=== PATIENT | female | born 1990 | race Caucasian/White ===

== ENCOUNTER → 2019-01-02 | Outpatient (CLI) | payer OTHER ==
[~2019-01-02] MED LIST: ONDA4 PO; OXYACE5T PO
[2019-01-04 00:10] LABS: CHLAMYDIA TRACHOMATIS, NAA Negative (Negative); NEISSERIA GONORRHOEAE, NAA Negative (Negative)
== END | disposition home or self-care (01) ==
LOC: LAB SHORT 10:41 → LAB 10:41
PROVIDERS: Obstetrics & Gynecology
DX: Z36.89 Encounter for other specified antenatal screening (principal)
CPT/HCPCS: 87491; 87591; G0123

== ENCOUNTER → 2019-06-11 | Outpatient (CLI) | payer OTHER ==
[~2019-06-11] MED LIST changes: +PRENATAL TABLE1 EAC2; +Prozac20 MG
== END | disposition home or self-care (01) ==
LOC: LAB SHORT 16:26 → LAB 16:26
DX: Z34.80 Encounter for supervision of other normal pregnancy, unspecified trimester (principal)
CPT/HCPCS: 87081; 87653

== ENCOUNTER → 2019-06-26 | Outpatient (CLI) | payer OTHER ==
[2019-06-27 11:55] LABS: Candida species (DNA Probe) Negative (NEGATIVE); G. vaginalis (DNA Probe) Positive (NEGATIVE); T. vaginalis (DNA Probe) Negative (NEGATIVE)
== END | disposition home or self-care (01) ==
LOC: LAB 15:08 → LAB SHORT 15:08
PROVIDERS: Advanced Practice Midwife
DX: N89.8 Other specified noninflammatory disorders of vagina (principal)
CPT/HCPCS: 87480; 87510; 87660

== ENCOUNTER 2019-07-02 23:50 | Inpatient (IN) | payer OTHER ==
[~2019-07-02] VITALS: Ht 162.6 cm; Wt 107.2 kg
[~2019-07-02 23:50] MED LIST changes: -PRENATAL TABLE1 EAC2; -Prozac20 MG
[2019-07-03] MEDS ORDERED: PRENATAL TABLE1 EAC2 (00:06)
[2019-07-03] MEDS ORDERED: Prozac20 MG (00:06)
[2019-07-03 01:11] LABS: BASOPHILS ABSOLUTE AUTO 0.02 K/mm3 (0.00-0.23); BASOPHILS PERCENT AUTO 0 % (0-2); EOSINOPHILS ABSOLUTE AUTO 0.03 K/mm3 (0.00-0.68); EOSINOPHILS PERCENT AUTO 0 % (0-6); Hematocrit 34.6 % (33.0-51.0); Hemoglobin 10.8 g/dL (11.5-16.0); IMMATURE GRAN ABSOLUTE AUTO 0.06 K/mm3 (0.00-0.10); IMMATURE GRAN PERCENT AUTO 1 % (0-1); LYMPHOCYTES PERCENT AUTO 24 % (21-46); MONOCYTES ABSOLUTE AUTO 0.93 K/mm3 (0.16-1.47); MONOCYTES PERCENT AUTO 11 % (4-13); Mean Corpuscular HGB 22.5 pg (26.0-34.0); Mean Corpuscular HGB Conc 31.2 g/dL (31.5-36.5); Mean Corpuscular Volume 72 fL (80-100); Mean Platelet Volume 9.7 fL (9.1-12.4); NEUTROPHILS ABSOLUTE AUTO 5.42 K/mm3 (1.96-9.15); NEUTROPHILS PERCENT AUTO 64 % (41-73); Platelet Count 268 K/mm3 (150-400); RDW Coefficient Variation 15.9 % (11.7-14.2); RDW Standard Deviation 40.7 fL (35.1-46.3); Red Blood Cell Count 4.79 M/mm3 (3.80-5.20); White Blood Cell Count 8.46 K/mm3 (4.00-11.30)
[2019-07-03 01:16] LABS: Source, Urine Clean Catch
[2019-07-03 01:20] LABS: Appearance, Urine Cloudy (Clear); Bilirubin, Urine Neg (Neg); Blood, Urine 4+ (Neg); Color, Urine Amber (P-Yellow); Glucose Qualitative, Urine 1+ (Neg); Ketones, Urine 1+ (Neg); Leukocyte Esterase, Urine 3+ (Neg); Nitrite, Urine Neg (Neg); Protein, Urine 2+ (Neg); Specific Gravity, Urine 1.025 (1.003-1.022); Urobilinogen, Urine 1+ (Normal)
[2019-07-03 01:27] LABS: Bacteria Many /hpf; Calcium Oxalate Crystals Many /hpf; Squamous Epithelial Cells Few /hpf (Few)
--- NOTE | 2019-07-03 13:35 | NUR ---
PASS OUT 1320- PT READY TO GET UP TO SHOWER. SITTING AT THE EDGE OF BED WITH SIGIFREDO RN AT BEDSIDE FOR ASSISTANCE. PT SAT UP AND SAID SHE WAS A LITTLE DIZZY. SAT FOR A FEW MINUTES AND SAID SHE WAS READY TO TRY AND SIT IN A CHAIR TO CHANGE BED. SHE TRIED TO GET UP SHE GOT RINGING IN HER EARS AND SHE COMPLETELT PASSED OUT. SIGIFREDO AND MYSELF LAID HER BACK DOWN IN BED AND BROKE AN AMMONIA UNDER HER NOSE. IT TOOK A GOOD MINUTE FOR HER TO COME BACK AROUND. EMERGENCY BUTTON PRESSED AND EXTRA STAFF IN ROOM. O2 VIA FACEMASK ON AND BP ON. ONCE SHE WOKE UP SHE STATED SHE FELT MUCH BETTER. WILL KEEP FLAT AND BP GOING UNTIL STABLE. LOCHIA SCANT AND PADS CHANGED IN BED.
[2019-07-04 06:12] LABS: Hematocrit 30.2 % (33.0-51.0); Hemoglobin 9.5 g/dL (11.5-16.0); Mean Corpuscular HGB 22.8 pg (26.0-34.0); Mean Corpuscular HGB Conc 31.5 g/dL (31.5-36.5); Mean Corpuscular Volume 73 fL (80-100); Mean Platelet Volume 9.6 fL (9.1-12.4); Platelet Count 226 K/mm3 (150-400); RDW Coefficient Variation 16.2 % (11.7-14.2); RDW Standard Deviation 41.3 fL (35.1-46.3); Red Blood Cell Count 4.16 M/mm3 (3.80-5.20)
--- NOTE | 2019-07-04 11:45 | NUR ---
BANDAIDE OVER STERI STRIPS IS C/D/I, NO DRAINAGE NOTED
--- NOTE | 2019-07-04 19:01 | NUR ---
DISCHARGE INSTRUCTIONS REVIEWED WITH PATIENT. VERBALIZES UNDERSTANDING, DENIES ANY FURTHER QUESTIONS. BANDS MATCHED.
== END 2019-07-04 19:00 | disposition home or self-care (01) | DRG 806 ==
LOC: OBS 23:50 → BC 07-03 00:47
PROVIDERS: ADMIT Obstetrics & Gynecology
PROC: 10E0XZZ Delivery of Products of Conception, External Approach (ICD-10-PCS; principal; 2019-07-03)
PROC: 0UQG7ZZ Repair Vagina, Via Natural or Artificial Opening (ICD-10-PCS; 2019-07-03)
PROC: 3E0R3BZ Introduction of Anesthetic Agent into Spinal Canal, Percutaneous Approach (ICD-10-PCS; 2019-07-03)
DX: O34.211 Maternal care for low transverse scar from previous cesarean delivery (principal); O71.4 Obstetric high vaginal laceration alone; Z37.0 Single live birth; Z3A.39 39 weeks gestation of pregnancy; O69.81X0 Labor and delivery complicated by cord around neck, without compression, not applicable or unspecified; Z87.891 Personal history of nicotine dependence
CPT/HCPCS: 36415; 51702; 81001; 85025; 85027; 87086; 87210; A9270; J2001; J2405; J2590; J3010; J7120

== ENCOUNTER → 2019-10-18 | Outpatient (CLI) | payer OTHER ==
[~2019-10-18] MED LIST changes: +PRENATAL TABLE1 EAC2; +Prozac20 MG
[2019-10-21 06:07] LABS: CHLAMYDIA TRACHOMATIS, NAA Negative (Negative); NEISSERIA GONORRHOEAE, NAA Negative (Negative)
== END | disposition home or self-care (01) ==
LOC: LAB 18:02 → LAB SHORT 18:02
PROVIDERS: Advanced Practice Midwife
DX: Z30.09 Encounter for other general counseling and advice on contraception (principal)
CPT/HCPCS: 87491; 87591

== ENCOUNTER → 2019-12-27 | Outpatient (CLI) | payer OTHER ==
[2019-12-28 10:28] LABS: Candida species (DNA Probe) Negative (NEGATIVE); G. vaginalis (DNA Probe) Negative (NEGATIVE); T. vaginalis (DNA Probe) Negative (NEGATIVE)
== END | disposition home or self-care (01) ==
LOC: LAB 10:12 → LAB SHORT 10:12
PROVIDERS: Advanced Practice Midwife
DX: N76.0 Acute vaginitis (principal)
CPT/HCPCS: 87480; 87510; 87660

== ENCOUNTER 2021-06-08 08:36 | Observation (INO) | payer OTHER ==
[~2021-06-08] VITALS: Ht 162.6 cm; Wt 124.0 kg
[~2021-06-08 08:36] MED LIST changes: -ASPI81CH PO; -Acetaminophen325 M1 PO; -BUSP5 PO; -CALCIUM CARBON500 M1 PO; -DILT60 PO; -METO25 PO; -POTCHL20ER PO; -ZOLOFT50 MG PO
[2021-06-08 09:09] LABS: BASOPHILS ABSOLUTE AUTO 0.04 K/mm3 (0.00-0.23); BASOPHILS PERCENT AUTO 0 % (0-2); EOSINOPHILS ABSOLUTE AUTO 0.08 K/mm3 (0.00-0.68); EOSINOPHILS PERCENT AUTO 1 % (0-6); Hematocrit 40.4 % (33.0-51.0); Hemoglobin 13.2 g/dL (11.5-16.0); IMMATURE GRAN ABSOLUTE AUTO 0.04 K/mm3 (0.00-0.10); IMMATURE GRAN PERCENT AUTO 0 % (0-1); LYMPHOCYTES ABSOLUTE AUTO 2.43 K/mm3 (0.84-5.20); LYMPHOCYTES PERCENT AUTO 26 % (21-46); MONOCYTES ABSOLUTE AUTO 0.43 K/mm3 (0.16-1.47); MONOCYTES PERCENT AUTO 5 % (4-13); Mean Corpuscular HGB 25.2 pg (26.0-34.0); Mean Corpuscular HGB Conc 32.7 g/dL (31.5-36.5); Mean Corpuscular Volume 77 fL (80-100); Mean Platelet Volume 10.1 fL (9.1-12.4); NEUTROPHILS ABSOLUTE AUTO 6.34 K/mm3 (1.96-9.15); NEUTROPHILS PERCENT AUTO 68 % (41-73); NRBC ABSOLUTE 0.02 K/mm3 (0.00-0.02); NRBC Auto 0.2 /100 WBC (0.0-0.2); Platelet Count 322 K/mm3 (150-400); RDW Coefficient Variation 15.9 % (11.7-14.2); Red Blood Cell Count 5.24 M/mm3 (3.80-5.20); White Blood Cell Count 9.36 K/mm3 (4.00-11.30)
[2021-06-08 09:24] LABS: Alanine Aminotransfer (ALT/SGP 88 U/L (12-78); Albumin, Blood 3.3 g/dL (3.4-5.0); Alk Phos 53 U/L (50-136); Anion Gap 7 mmol/L (6-16); Aspartate Aminotrans (AST/SGOT 34 U/L (12-37); Bilirubin, Total 0.8 mg/dL (0.1-1.0); Blood Urea Nitrogen 17 mg/dL (8-24); Bun/Creatinine Ratio 18.6 (12.0-20.0); CO2, Blood 23 mmol/L (21-32); Calcium, Blood 8.3 mg/dL (8.5-10.1); Chloride, Blood 109 mmol/L (98-108); Creatinine, Blood 0.92 mg/dL (0.40-1.00); Globulin, Blood 3.2 g/dL (2.2-4.0); Glomerular Filtration Rate >60 (60-); Glucose, Blood 124 mg/dL (70-99); Potassium, Blood 3.7 mmol/L (3.5-5.5); Sodium, Blood 139 mmol/L (136-145); Total Protein, Blood 6.5 g/dL (6.4-8.2); Troponin I <0.015 ng/mL (0.000-0.040)
[2021-06-08 11:26] LABS: SARS-Cov-2 (COVID-19) PCR, MMC NEGATIVE (NEGATIVE)
[2021-06-08] MEDS ORDERED: BUSP5 PO ×2 (11:31)
[2021-06-08] MEDS ORDERED: ZOLOFT50 MG PO ×2 (11:31)
[2021-06-08 17:24] LABS: U Amphetamine Screen Not Detected; U Barbituate Screen Not Detected; U Benzodiazapine Screen Not Detected; U Buprenorphine Screen Not Detected; U Cannabinoids Screen Not Detected; U Cocaine Screen Not Detected; U Methadone Screen Not Detected; U Methamphetamine Screen Not Detected; U Opiates Screen Not Detected; U Oxycodone Screen Not Detected; U Phencyclidine Screen Not Detected; U Propoxyphene Screen Not Detected
--- NOTE | 2021-06-09 06:17 | NUR ---
shift summary pt rested well through the night. alert and oriented, able to make needs known. cooperative with plan of care. sats >90% on room air. tele a fib, rate better controlled in 80's-90's. voiding to bathroom, 1 bm, c/o headache - see emar. vss. call light within reach, bed in lowest positon. will continue to monitor.
[2021-06-09 06:28] LABS: BASOPHILS ABSOLUTE AUTO 0.03 K/mm3 (0.00-0.23); BASOPHILS PERCENT AUTO 1 % (0-2); EOSINOPHILS ABSOLUTE AUTO 0.08 K/mm3 (0.00-0.68); EOSINOPHILS PERCENT AUTO 1 % (0-6); Hematocrit 38.9 % (33.0-51.0); Hemoglobin 12.3 g/dL (11.5-16.0); IMMATURE GRAN ABSOLUTE AUTO 0.03 K/mm3 (0.00-0.10); IMMATURE GRAN PERCENT AUTO 1 % (0-1); LYMPHOCYTES ABSOLUTE AUTO 1.86 K/mm3 (0.84-5.20); LYMPHOCYTES PERCENT AUTO 33 % (21-46); MONOCYTES ABSOLUTE AUTO 0.43 K/mm3 (0.16-1.47); MONOCYTES PERCENT AUTO 8 % (4-13); Mean Corpuscular HGB 24.7 pg (26.0-34.0); Mean Corpuscular HGB Conc 31.6 g/dL (31.5-36.5); Mean Corpuscular Volume 78 fL (80-100); Mean Platelet Volume 10.1 fL (9.1-12.4); NEUTROPHILS ABSOLUTE AUTO 3.23 K/mm3 (1.96-9.15); NEUTROPHILS PERCENT AUTO 57 % (41-73); Platelet Count 238 K/mm3 (150-400); RDW Coefficient Variation 16.3 % (11.7-14.2); RDW Standard Deviation 44.2 fL (35.1-46.3); Red Blood Cell Count 4.98 M/mm3 (3.80-5.20); White Blood Cell Count 5.66 K/mm3 (4.00-11.30)
[2021-06-09 06:51] LABS: Alanine Aminotransfer (ALT/SGP 76 U/L (12-78); Albumin, Blood 3.3 g/dL (3.4-5.0); Alk Phos 47 U/L (50-136); Anion Gap 8 mmol/L (6-16); Aspartate Aminotrans (AST/SGOT 27 U/L (12-37); Bilirubin, Total 0.9 mg/dL (0.1-1.0); Blood Urea Nitrogen 17 mg/dL (8-24); Bun/Creatinine Ratio 18.8 (12.0-20.0); CO2, Blood 25 mmol/L (21-32); Chloride, Blood 105 mmol/L (98-108); Creatinine, Blood 0.91 mg/dL (0.40-1.00); Globulin, Blood 3.2 g/dL (2.2-4.0); Glomerular Filtration Rate >60 (60-); Glucose, Blood 95 mg/dL (70-99); Potassium, Blood 3.4 mmol/L (3.5-5.5); Sodium, Blood 138 mmol/L (136-145); Total Protein, Blood 6.5 g/dL (6.4-8.2)
[2021-06-09] MEDS ORDERED: Acetaminophen325 M1 PO ×2 (13:02)
[2021-06-09] MEDS ORDERED: ASPI81CH PO ×2 (13:04)
[2021-06-09] MEDS ORDERED: CALCIUM CARBON500 M1 PO ×2 (13:05)
[2021-06-09] MEDS ORDERED: POTCHL20ER PO ×2 (13:07)
[2021-06-09] MEDS ORDERED: DILT60 PO ×2 (13:07)
[2021-06-09] MEDS ORDERED: METO25 PO ×2 (13:08)
--- NOTE | 2021-06-09 18:51 | NUR ---
PT DILTIAZEM OFF AT 1045; PT'S RATE MAINTAINING IN 90'S TO LOW 110'S ON PO REGIMEN; ECHO RESULTS IN; TRANSFER ORDERS PLACED; IV OUT AT 1510; TELEMETRY OFF AT 1520; DISCHARGE TEACHING AT 1445; PT DENIES ADDITIONAL CONCERNS AT THIS TIME; PT'S FATHER AT BEDSIDE; PT ASSISTED TO CHANGE INTO STREET CLOTHES; PT TRANSFERRED VIA WHEELCHAIR WITH PERSONAL EFFECTS, ACCOMPANIED BY NURSE TECH, WITH NO MONITORING, IV INFUSION, OR OXYGEN THERAPY; PT DENIES ADDITIONAL CONCERNS AT THIS TIME; PT OFF UNIT AT 1528
== END 2021-06-09 15:27 | disposition home or self-care (01) ==
LOC: ER 08:36 → PCU 15:41
PROVIDERS: Emergency Medicine; Nurse Practitioner Acute Care; ADMIT Internal Medicine
DX: I48.91 Unspecified atrial fibrillation (principal); I50.9 Heart failure, unspecified; E66.01 Morbid (severe) obesity due to excess calories; J45.20 Mild intermittent asthma, uncomplicated; F32.9 Major depressive disorder, single episode, unspecified; F41.9 Anxiety disorder, unspecified; Z68.42 Body mass index [BMI] 45.0-49.9, adult; Z20.822 Contact with and (suspected) exposure to COVID-19
CPT/HCPCS: 36415; 71045; 71260; 80053; 83735; 83880; 84145; 84443; 84484; 84702; 85025; 85651; 86140; 93005; 93010; 93306; A9270; J1940; J2405; Q9967; U0004

== ENCOUNTER → 2021-06-08 | Outpatient (CLI) | payer OTHER ==
[~2021-06-08] MED LIST changes: +ASPI81CH PO; +Acetaminophen325 M1 PO; +BUSP5 PO; +CALCIUM CARBON500 M1 PO; +DILT60 PO; +METO25 PO; +POTCHL20ER PO; +ZOLOFT50 MG PO
[2021-06-08 08:11] LABS: BASOPHILS ABSOLUTE AUTO 0.05 K/mm3 (0.00-0.23); BASOPHILS PERCENT AUTO 1 % (0-2); EOSINOPHILS ABSOLUTE AUTO 0.12 K/mm3 (0.00-0.68); EOSINOPHILS PERCENT AUTO 1 % (0-6); Hematocrit 42.2 % (33.0-51.0); Hemoglobin 13.8 g/dL (11.5-16.0); IMMATURE GRAN ABSOLUTE AUTO 0.04 K/mm3 (0.00-0.10); IMMATURE GRAN PERCENT AUTO 0 % (0-1); LYMPHOCYTES ABSOLUTE AUTO 2.38 K/mm3 (0.84-5.20); LYMPHOCYTES PERCENT AUTO 25 % (21-46); MONOCYTES ABSOLUTE AUTO 0.55 K/mm3 (0.16-1.47); MONOCYTES PERCENT AUTO 6 % (4-13); Mean Corpuscular HGB Conc 32.7 g/dL (31.5-36.5); Mean Corpuscular Volume 77 fL (80-100); Mean Platelet Volume 9.9 fL (9.1-12.4); NEUTROPHILS ABSOLUTE AUTO 6.32 K/mm3 (1.96-9.15); NEUTROPHILS PERCENT AUTO 67 % (41-73); Platelet Count 309 K/mm3 (150-400); RDW Coefficient Variation 16.1 % (11.7-14.2); RDW Standard Deviation 41.7 fL (35.1-46.3); Red Blood Cell Count 5.51 M/mm3 (3.80-5.20); White Blood Cell Count 9.46 K/mm3 (4.00-11.30)
== END | disposition home or self-care (01) ==
LOC: LAB SHORT 08:07 → LAB 08:07
PROVIDERS: Family Medicine
DX: D64.9 Anemia, unspecified (principal); R06.00 Dyspnea, unspecified
CPT/HCPCS: 85025; 85379

== ENCOUNTER 2021-06-25 08:53 | Emergency (ER) | payer OTHER ==
[~2021-06-25] VITALS: Ht 162.6 cm; Wt 120.2 kg
[~2021-06-25 08:53] MED LIST changes: +ASPI81CH PO; +Acetaminophen325 M1 PO; +BUSP5 PO; +CALCIUM CARBON500 M1 PO; +DILT60 PO; +METO25 PO; +POTCHL20ER PO; +ZOLOFT50 MG PO
[2021-06-25 09:28] LABS: BASOPHILS ABSOLUTE AUTO 0.06 K/mm3 (0.00-0.23); BASOPHILS PERCENT AUTO 1 % (0-2); EOSINOPHILS ABSOLUTE AUTO 0.13 K/mm3 (0.00-0.68); EOSINOPHILS PERCENT AUTO 1 % (0-6); Hematocrit 41.2 % (33.0-51.0); Hemoglobin 13.3 g/dL (11.5-16.0); IMMATURE GRAN ABSOLUTE AUTO 0.04 K/mm3 (0.00-0.10); IMMATURE GRAN PERCENT AUTO 0 % (0-1); LYMPHOCYTES ABSOLUTE AUTO 2.39 K/mm3 (0.84-5.20); LYMPHOCYTES PERCENT AUTO 24 % (21-46); MONOCYTES ABSOLUTE AUTO 0.58 K/mm3 (0.16-1.47); MONOCYTES PERCENT AUTO 6 % (4-13); Mean Corpuscular HGB 25.2 pg (26.0-34.0); Mean Corpuscular HGB Conc 32.3 g/dL (31.5-36.5); Mean Corpuscular Volume 78 fL (80-100); Mean Platelet Volume 10.2 fL (9.1-12.4); NEUTROPHILS PERCENT AUTO 67 % (41-73); Platelet Count 317 K/mm3 (150-400); RDW Standard Deviation 46.4 fL (35.1-46.3); Red Blood Cell Count 5.27 M/mm3 (3.80-5.20)
[2021-06-25 09:48] LABS: Alanine Aminotransfer (ALT/SGP 61 U/L (12-78); Albumin, Blood 3.4 g/dL (3.4-5.0); Albumin/Globulin Ratio 1.1 (0.8-1.8); Alk Phos 48 U/L (50-136); Anion Gap 8 mmol/L (6-16); Aspartate Aminotrans (AST/SGOT 22 U/L (12-37); Bilirubin, Total 1.1 mg/dL (0.1-1.0); Blood Urea Nitrogen 16 mg/dL (8-24); CO2, Blood 22 mmol/L (21-32); Calcium, Blood 8.3 mg/dL (8.5-10.1); Chloride, Blood 110 mmol/L (98-108); Creatinine, Blood 1.07 mg/dL (0.40-1.00); Globulin, Blood 3.1 g/dL (2.2-4.0); Glomerular Filtration Rate 59 (60-); Glucose, Blood 99 mg/dL (70-99); Sodium, Blood 140 mmol/L (136-145); Total Protein, Blood 6.5 g/dL (6.4-8.2); Troponin I <0.015 ng/mL (0.000-0.040)
[2021-06-25 10:30] LABS: SARS-Cov-2 (COVID-19) PCR, MMC NEGATIVE (NEGATIVE)
[2021-06-25] MEDS ORDERED: ELIQUIS5 M2 PO (11:52)
[2021-06-25] MEDS ORDERED: CARTIA XT PO (11:52)
== END 2021-06-25 12:10 | disposition home or self-care (01) ==
LOC: ER 08:53
PROVIDERS: Emergency Medicine
DX: I48.91 Unspecified atrial fibrillation (principal); Z20.822 Contact with and (suspected) exposure to COVID-19; Z88.5 Allergy status to narcotic agent; Z88.6 Allergy status to analgesic agent; Z91.048 Other nonmedicinal substance allergy status; Z79.899 Other long term (current) drug therapy; Z79.82 Long term (current) use of aspirin
CPT/HCPCS: 71045; 80053; 83735; 83880; 84484; 84703; 85025; 93005; 93010; 96374; 99285-25; A9270; U0004

== ENCOUNTER → 2021-07-09 | Outpatient (CLI) | payer OTHER ==
[~2021-07-09] MED LIST changes: +CARTIA XT PO; +DILTIAZEM HCL120 M2 PO; +ELIQUIS5 M2 PO; +ELIQUIS5 M3 PO; +FUROSEMIDE20 MG PO; +KLOR-CON 1010 ME3 PO; +ONDA4ODT MM; +SERT100 PO
[2021-07-09 08:36] LABS: BASOPHILS ABSOLUTE AUTO 0.05 K/mm3 (0.00-0.23); BASOPHILS PERCENT AUTO 1 % (0-2); EOSINOPHILS ABSOLUTE AUTO 0.03 K/mm3 (0.00-0.68); EOSINOPHILS PERCENT AUTO 0 % (0-6); Hematocrit 42.5 % (33.0-51.0); Hemoglobin 13.5 g/dL (11.5-16.0); IMMATURE GRAN ABSOLUTE AUTO 0.04 K/mm3 (0.00-0.10); IMMATURE GRAN PERCENT AUTO 0 % (0-1); LYMPHOCYTES ABSOLUTE AUTO 2.28 K/mm3 (0.84-5.20); LYMPHOCYTES PERCENT AUTO 22 % (21-46); MONOCYTES ABSOLUTE AUTO 0.64 K/mm3 (0.16-1.47); MONOCYTES PERCENT AUTO 6 % (4-13); Mean Corpuscular HGB 24.7 pg (26.0-34.0); Mean Corpuscular HGB Conc 31.8 g/dL (31.5-36.5); Mean Corpuscular Volume 78 fL (80-100); Mean Platelet Volume 9.6 fL (9.1-12.4); NEUTROPHILS ABSOLUTE AUTO 7.15 K/mm3 (1.96-9.15); NEUTROPHILS PERCENT AUTO 70 % (41-73); Platelet Count 341 K/mm3 (150-400); RDW Coefficient Variation 16.4 % (11.7-14.2); RDW Standard Deviation 44.8 fL (35.1-46.3); Red Blood Cell Count 5.46 M/mm3 (3.80-5.20); White Blood Cell Count 10.19 K/mm3 (4.00-11.30)
[2021-07-09 08:56] LABS: Alanine Aminotransfer (ALT/SGP 48 U/L (12-78); Albumin, Blood 3.9 g/dL (3.4-5.0); Albumin/Globulin Ratio 1.2 (0.8-1.8); Alk Phos 53 U/L (40-126); Anion Gap 13 mmol/L (6-16); Aspartate Aminotrans (AST/SGOT 17 U/L (12-37); Bilirubin, Total 1.2 mg/dL (0.1-1.0); Blood Urea Nitrogen 15 mg/dL (8-24); Bun/Creatinine Ratio 12.6 (12.0-20.0); CO2, Blood 24 mmol/L (21-32); Calcium, Blood 8.4 mg/dL (8.5-10.1); Chloride, Blood 103 mmol/L (98-108); Creatinine, Blood 1.19 mg/dL (0.40-1.00); Globulin, Blood 3.3 g/dL (2.2-4.0); Glomerular Filtration Rate 53 (60-); Glucose, Blood 106 mg/dL (70-99); Potassium, Blood 4.1 mmol/L (3.5-5.5); Sodium, Blood 140 mmol/L (136-145); Total Protein, Blood 7.2 g/dL (6.4-8.2); Troponin I <0.017 ng/mL (0.000-0.040)
[2021-07-09 11:06] LABS: Bilirubin, Direct 0.2 mg/dL (0.0-0.3); Bilirubin, Indirect 0.9 mg/dL (0.1-0.7); Bilirubin, Total 1.1 mg/dL (0.1-1.0)
== END | disposition home or self-care (01) ==
LOC: LAB SHORT 08:33 → LAB 08:33
PROVIDERS: Physician Assistant
DX: K92.0 Hematemesis (principal); E80.6 Other disorders of bilirubin metabolism; R11.2 Nausea with vomiting, unspecified
CPT/HCPCS: 80053; 82247; 82248; 84484; 84702; 85025

== ENCOUNTER → 2021-07-13 | Outpatient (CLI) | payer OTHER ==
[2021-07-13 13:20] LABS: Stool Occult Bld Immuno 1 Negative (NEGATIVE)
== END | disposition home or self-care (01) ==
LOC: LAB 08:08 → LAB SHORT 08:08
PROVIDERS: Student in an Organized Health Care Education/Training Program
DX: K92.1 Melena (principal)
CPT/HCPCS: G0328

== ENCOUNTER 2021-07-15 13:17 | Emergency (ER) | payer OTHER ==
[~2021-07-15] VITALS: Ht 162.6 cm; Wt 119.8 kg
[~2021-07-15 13:17] MED LIST changes: -DILTIAZEM HCL120 M2 PO; -ELIQUIS5 M3 PO; -FUROSEMIDE20 MG PO; -KLOR-CON 1010 ME3 PO; -ONDA4ODT MM; -SERT100 PO
[2021-07-15] MEDS ORDERED: SERT100 PO (14:42)
[2021-07-15] MEDS ORDERED: ELIQUIS5 M3 PO (14:42)
[2021-07-15] MEDS ORDERED: KLOR-CON 1010 ME3 PO (14:44)
[2021-07-15] MEDS ORDERED: FUROSEMIDE20 MG PO (14:44)
[2021-07-15] MEDS ORDERED: DILTIAZEM HCL120 M2 PO (14:46)
[2021-07-15] MEDS ORDERED: ONDA4ODT MM (17:07)
== END 2021-07-15 17:35 | disposition home or self-care (01) ==
LOC: ER 13:17
DX: I48.91 Unspecified atrial fibrillation (principal); J45.909 Unspecified asthma, uncomplicated; Z88.5 Allergy status to narcotic agent; Z88.6 Allergy status to analgesic agent; Z91.048 Other nonmedicinal substance allergy status; Z79.899 Other long term (current) drug therapy; Z79.82 Long term (current) use of aspirin; Z79.01 Long term (current) use of anticoagulants; Z87.891 Personal history of nicotine dependence
CPT/HCPCS: 92960; 93005; 93010; 96374-59; 96375-59; 99152; 99285-25; J2704; J3010; J7030

== ENCOUNTER → 2021-07-15 | Outpatient (CLI) | payer OTHER ==
[2021-07-15 13:10] LABS: Alanine Aminotransfer (ALT/SGP 50 U/L (12-78); Albumin/Globulin Ratio 1.1 (0.8-1.8); Alk Phos 53 U/L (40-126); Anion Gap 10 mmol/L (6-16); Aspartate Aminotrans (AST/SGOT 19 U/L (12-37); Bilirubin, Total 1.1 mg/dL (0.1-1.0); Blood Urea Nitrogen 19 mg/dL (8-24); Bun/Creatinine Ratio 17.3 (12.0-20.0); CO2, Blood 29 mmol/L (21-32); Calcium, Blood 8.9 mg/dL (8.5-10.1); Chloride, Blood 102 mmol/L (98-108); Globulin, Blood 3.5 g/dL (2.2-4.0); Glomerular Filtration Rate 58 (60-); Glucose, Blood 86 mg/dL (70-99); Magnesium, Blood 2.1 mg/dL (1.6-2.4); Potassium, Blood 3.8 mmol/L (3.5-5.5); Sodium, Blood 141 mmol/L (136-145); Total Protein, Blood 7.5 g/dL (6.4-8.2)
[2021-07-15 13:11] LABS: Troponin I <0.017 ng/mL (0.000-0.040)
== END | disposition home or self-care (01) ==
LOC: LAB SHORT 12:53 → LAB 12:53
PROVIDERS: Chiropractor
DX: R00.2 Palpitations (principal)
CPT/HCPCS: 80053; 83735; 84484

== ENCOUNTER 2021-08-27 16:06 | Inpatient (IN) | payer OTHER ==
[~2021-08-27] VITALS: Ht 162.6 cm; Wt 117.0 kg
[~2021-08-27 16:06] MED LIST changes: -BUSP5 PO; +ELIQUIS5 M3 PO; +ONDA4ODT MM
[2021-08-27 16:27] LABS: BASOPHILS ABSOLUTE AUTO 0.07 K/mm3 (0.00-0.23); BASOPHILS PERCENT AUTO 1 % (0-2); EOSINOPHILS ABSOLUTE AUTO 0.18 K/mm3 (0.00-0.68); EOSINOPHILS PERCENT AUTO 2 % (0-6); Hematocrit 45.5 % (33.0-51.0); IMMATURE GRAN ABSOLUTE AUTO 0.06 K/mm3 (0.00-0.10); IMMATURE GRAN PERCENT AUTO 1 % (0-1); LYMPHOCYTES ABSOLUTE AUTO 3.87 K/mm3 (0.84-5.20); LYMPHOCYTES PERCENT AUTO 32 % (21-46); MONOCYTES PERCENT AUTO 8 % (4-13); Mean Corpuscular HGB 22.9 pg (26.0-34.0); Mean Corpuscular HGB Conc 30.8 g/dL (31.5-36.5); Mean Corpuscular Volume 75 fL (80-100); Mean Platelet Volume 9.3 fL (9.1-12.4); NEUTROPHILS ABSOLUTE AUTO 6.78 K/mm3 (1.96-9.15); NEUTROPHILS PERCENT AUTO 57 % (41-73); Platelet Count 379 K/mm3 (150-400); RDW Coefficient Variation 17.5 % (11.7-14.2); RDW Standard Deviation 42.2 fL (35.1-46.3); Red Blood Cell Count 6.11 M/mm3 (3.80-5.20); White Blood Cell Count 11.96 K/mm3 (4.00-11.30)
[2021-08-27 17:08] LABS: Albumin/Globulin Ratio 1.1 (0.8-1.8); Bilirubin, Total 0.8 mg/dL (0.1-1.0); Calcium, Blood 9.2 mg/dL (8.5-10.1); Creatinine, Blood 1.14 mg/dL (0.40-1.00); Globulin, Blood 3.7 g/dL (2.2-4.0); Total Protein, Blood 7.7 g/dL (6.4-8.2)
[2021-08-27 19:04] LABS: SARS-Cov-2 (COVID-19) PCR, MMC NEGATIVE (NEGATIVE)
[2021-08-27] MEDS ORDERED: DILTIAZEM 24HR120 M4 PO (19:15)
[2021-08-27] MEDS ORDERED: KLOR-CON 1010 ME3 PO (19:17)
[2021-08-27] MEDS ORDERED: FUROSEMIDE20 MG PO (19:17)
[2021-08-27] MEDS ORDERED: SERT100 PO (19:20)
[2021-08-27] MEDS ORDERED: Tambocor100 MG PO (19:22)
[2021-08-27] MEDS ORDERED: LANOXIN250 MCG PO (19:22)
[2021-08-27] MEDS ORDERED: XARELTO20 M1 PO (19:23)
[2021-08-27 19:29] LABS: Source, Urine Clean Catch
[2021-08-27 19:44] LABS: Appearance, Urine Hazy (Clear); Bilirubin, Urine Neg (Neg); Blood, Urine Neg (Neg); Color, Urine Yellow (P-Yellow); Glucose Qualitative, Urine Neg (Neg); Ketones, Urine Neg (Neg); Leukocyte Esterase, Urine Neg (Neg); Nitrite, Urine Neg (Neg); Protein, Urine 2+ (Neg); Specific Gravity, Urine 1.015 (1.003-1.022); Urobilinogen, Urine NORM (Normal)
[2021-08-27] MEDS ORDERED: BUSP5 PO (19:48)
[2021-08-27 19:55] LABS: U Amphetamine Screen Not Detected; U Barbituate Screen Not Detected; U Benzodiazapine Screen Not Detected; U Buprenorphine Screen Not Detected; U Cannabinoids Screen Not Detected; U Cocaine Screen Not Detected; U Methadone Screen Not Detected; U Methamphetamine Screen Not Detected; U Opiates Screen DETECTED; U Oxycodone Screen Not Detected; U Phencyclidine Screen Not Detected; U Propoxyphene Screen Not Detected
[2021-08-27 20:03] LABS: Bacteria Mod /hpf; Squamous Epithelial Cells Many /hpf (Few)
[2021-08-27 20:06] LABS: Red Blood Cells, Urine Not Seen /hpf (0-2); White Blood Cells, Urine Rare /hpf (0-5)
[2021-08-28 00:33] LABS: CPK Creatine Kinase 31 U/L (26-193); Troponin I <0.015 ng/mL (0.000-0.040)
[2021-08-28 00:52] LABS: Free Thyroxine 1.26 ng/dL (0.70-1.60)
[2021-08-28 01:29] LABS: BASOPHILS ABSOLUTE AUTO 0.06 K/mm3 (0.00-0.23); BASOPHILS PERCENT AUTO 1 % (0-2); EOSINOPHILS ABSOLUTE AUTO 0.12 K/mm3 (0.00-0.68); EOSINOPHILS PERCENT AUTO 1 % (0-6); Hematocrit 41.8 % (33.0-51.0); IMMATURE GRAN ABSOLUTE AUTO 0.04 K/mm3 (0.00-0.10); IMMATURE GRAN PERCENT AUTO 0 % (0-1); LYMPHOCYTES ABSOLUTE AUTO 2.56 K/mm3 (0.84-5.20); LYMPHOCYTES PERCENT AUTO 26 % (21-46); MONOCYTES PERCENT AUTO 6 % (4-13); Mean Corpuscular HGB 22.7 pg (26.0-34.0); Mean Corpuscular HGB Conc 31.1 g/dL (31.5-36.5); Mean Corpuscular Volume 73 fL (80-100); Mean Platelet Volume 9.2 fL (9.1-12.4); NEUTROPHILS ABSOLUTE AUTO 6.35 K/mm3 (1.96-9.15); NEUTROPHILS PERCENT AUTO 65 % (41-73); Platelet Count 282 K/mm3 (150-400); RDW Coefficient Variation 16.4 % (11.7-14.2); RDW Standard Deviation 41.2 fL (35.1-46.3); Red Blood Cell Count 5.73 M/mm3 (3.80-5.20); White Blood Cell Count 9.73 K/mm3 (4.00-11.30)
[2021-08-28 01:44] LABS: International Normalized Ratio 1.1; Prothrombin Time Results 11.5 Sec (9.7-11.5)
[2021-08-28 01:47] LABS: Albumin, Blood 3.5 g/dL (3.4-5.0); Bun/Creatinine Ratio 11.4 (12.0-20.0); Calcium, Blood 8.6 mg/dL (8.5-10.1); Creatinine, Blood 1.4 mg/dL (0.40-1.00); Globulin, Blood 3.6 g/dL (2.2-4.0); Potassium, Blood 3.5 mmol/L (3.5-5.5); Total Protein, Blood 7.1 g/dL (6.4-8.2)
[2021-08-28 09:06] LABS: CPK Creatine Kinase 33 U/L (26-193); Troponin I <0.015 ng/mL (0.000-0.040)
--- NOTE | 2021-08-28 18:42 | NUR ---
SHIFT SUMMARY: PT CONTINUES A&Ox4, USES CALL LIGHT APPROPRIATELY. PT MAINTAINS O2 SATS >93% ON RA, AFLUTTER W/RATE IN 120s CONSISTENT ON MONITOR, DR DURBIN IS AWARE. PT TO AND FROM HANDLE ROUNDER OPERATOR TODAY FOR ANGIOGRAM, ARTERIES ARE CLEAR, NO INTERVENTION PERFORMED. PT W/RT RADIAL SITE, TR BAND HAS BEEN REMOVED AND CLEAR DRESSING AND ARM BOARD IN PLACE, SITE WNL. AMIODARONE INFUSION CONTINUES PER DR DURBIN. PLAN IS POSSIBLE CARDIOVERSION IN AM. PT IS AWARE OF PLAN. CHEST TIGHTNESS CONTINUES T/OUT DAY, PT MEDICATED PER EMAR. PT ABLE TO USE BSC W/SBA. WILL CONTINUE TO MONITOR AND TREAT ACCORDINGLY UNTIL CHANGE OF SHIFT.
[2021-08-29 00:26] LABS: BASOPHILS ABSOLUTE AUTO 0.05 K/mm3 (0.00-0.23); BASOPHILS PERCENT AUTO 1 % (0-2); EOSINOPHILS ABSOLUTE AUTO 0.13 K/mm3 (0.00-0.68); EOSINOPHILS PERCENT AUTO 2 % (0-6); Hematocrit 40.9 % (33.0-51.0); Hemoglobin 12.7 g/dL (11.5-16.0); IMMATURE GRAN ABSOLUTE AUTO 0.04 K/mm3 (0.00-0.10); IMMATURE GRAN PERCENT AUTO 1 % (0-1); LYMPHOCYTES ABSOLUTE AUTO 2.23 K/mm3 (0.84-5.20); LYMPHOCYTES PERCENT AUTO 27 % (21-46); MONOCYTES ABSOLUTE AUTO 0.66 K/mm3 (0.16-1.47); MONOCYTES PERCENT AUTO 8 % (4-13); Mean Corpuscular HGB 22.8 pg (26.0-34.0); Mean Corpuscular HGB Conc 31.1 g/dL (31.5-36.5); Mean Corpuscular Volume 73 fL (80-100); Mean Platelet Volume 9.2 fL (9.1-12.4); NEUTROPHILS ABSOLUTE AUTO 5.27 K/mm3 (1.96-9.15); NEUTROPHILS PERCENT AUTO 63 % (41-73); Platelet Count 261 K/mm3 (150-400); RDW Coefficient Variation 16.2 % (11.7-14.2); RDW Standard Deviation 42.5 fL (35.1-46.3); Red Blood Cell Count 5.57 M/mm3 (3.80-5.20); White Blood Cell Count 8.38 K/mm3 (4.00-11.30)
[2021-08-29 00:44] LABS: Alanine Aminotransfer (ALT/SGP 28 U/L (12-78); Albumin, Blood 3.4 g/dL (3.4-5.0); Alk Phos 54 U/L (50-136); Anion Gap 9 mmol/L (6-16); Aspartate Aminotrans (AST/SGOT 20 U/L (12-37); Bilirubin, Total 0.8 mg/dL (0.1-1.0); Blood Urea Nitrogen 19 mg/dL (8-24); Bun/Creatinine Ratio 18.3 (12.0-20.0); CO2, Blood 24 mmol/L (21-32); Calcium, Blood 8.2 mg/dL (8.5-10.1); Chloride, Blood 104 mmol/L (98-108); Creatinine, Blood 1.04 mg/dL (0.40-1.00); Globulin, Blood 3.4 g/dL (2.2-4.0); Glomerular Filtration Rate >60 (60-); Glucose, Blood 97 mg/dL (70-99); Potassium, Blood 3.6 mmol/L (3.5-5.5); Sodium, Blood 137 mmol/L (136-145); Total Protein, Blood 6.8 g/dL (6.4-8.2)
--- NOTE | 2021-08-29 17:02 | NUR ---
SHIFT SUMMARY PT A/O X4 AND COOPERATIVE OF CARE. PT REMAINED IN A-FLUTTER WITH A RATE IN THE 130'S FOR MOST OF SHIFT, MEDS GIVEN PER EMAR. PT REPORTED OCCASSIONAL CHEST PRESSURE AND SOB TOWARD BEGINNING OF SHIFT, SYMPTOMS HAVE LESSENED TOWARDS END OF SHIFT. PT WAS UP TO BEDSIDE COMMODE WITH MINIMAL ASSISTANCE, TOLERATED WELL. AMIODARONE GTT DC'D, PO MEDS NOW ON BOARD. PT WILL BE NPO AFTER MIDNIGHT FOR POSSIBLE CARDIOVERSION TOMMORROW. O2 SATS > 98% T/O SHIFT.
--- NOTE | 2021-08-29 18:06 | NUR ---
UPDATE AT 1800, THIS RN CAME TO PT ROOM TO GIVEN 1800 MEDS. PT STATES " I FELL LIGHT HEADED AND HAVE SOME CHEST PRESSURE. IT FEELS LIKE MY TODDLER IS SITTING ON MY CHEST." PT ALSO REPORTS FEELING SOB, O2 SATS 100 ON RA. PT HR A-FLUTTER RANGING FROM 105-134. PT BP 110/79 WITH A MAP OF 88. PT RECIEVED DIGOXIN AND XARELTO PER EMAR. WILL CONTINUE TO MONITOR.
--- NOTE | 2021-08-29 22:47 | NUR ---
ASSUMED CARE OF PT AT 1900. PATIENT SITTING HIGH FOWLERS IN BED ON HER PHONE. AFIB AVG 115-125 PER TELE. REPORTS OF 2/10 CHEST PRESSURE THAT SHE'S HAD PREVIOUSLY. RADIAL SITE WNL WITH PULSES PALPABLE BILATERALLY. CALL LIGHT WITHIN REACH.
--- NOTE | 2021-08-30 02:38 | NUR ---
A/OX4. REPORTS INTERMITTENT CHEST PRESSURE (SHE STATES NOT PAIN) OF A 2/10 THAT IS EXACTLY LIKE WHAT SHE'S BEEN EXPERIENCING PREVIOUSLY. REPORTS EXERTIONAL SOB, RR RANGES FROM 14-28. LS CLEAR UPPER AND DIM LOWER. AFIB AT 120. RADIAL SITE C/D/I WITH EQUAL PALPABLE PULSES BILATERALLY. PATIENT WAS GIVEN LAST LOADING DOSE OF DIGOXIN AND ORAL AMIO AND BROUGHT PULSE DOWN TO 50'S BRIEFLY BUT THEN MAINTAINED AROUND 70-80. NPO AT MIDNIGHT FOR POTENTIAL CARDIOVERSION IN AM. WILL REPORT TO LALITO NYE.
[2021-08-30 03:49] LABS: BASOPHILS ABSOLUTE AUTO 0.04 K/mm3 (0.00-0.23); BASOPHILS PERCENT AUTO 1 % (0-2); EOSINOPHILS PERCENT AUTO 1 % (0-6); Hematocrit 41.9 % (33.0-51.0); Hemoglobin 12.9 g/dL (11.5-16.0); IMMATURE GRAN ABSOLUTE AUTO 0.05 K/mm3 (0.00-0.10); IMMATURE GRAN PERCENT AUTO 1 % (0-1); LYMPHOCYTES ABSOLUTE AUTO 2.06 K/mm3 (0.84-5.20); LYMPHOCYTES PERCENT AUTO 25 % (21-46); MONOCYTES ABSOLUTE AUTO 0.65 K/mm3 (0.16-1.47); MONOCYTES PERCENT AUTO 8 % (4-13); Mean Corpuscular HGB 22.5 pg (26.0-34.0); Mean Corpuscular HGB Conc 30.8 g/dL (31.5-36.5); Mean Corpuscular Volume 73 fL (80-100); Mean Platelet Volume 9.3 fL (9.1-12.4); NEUTROPHILS ABSOLUTE AUTO 5.23 K/mm3 (1.96-9.15); NEUTROPHILS PERCENT AUTO 64 % (41-73); Platelet Count 270 K/mm3 (150-400); RDW Standard Deviation 41.3 fL (35.1-46.3); Red Blood Cell Count 5.73 M/mm3 (3.80-5.20); White Blood Cell Count 8.13 K/mm3 (4.00-11.30)
[2021-08-30 04:07] LABS: Alanine Aminotransfer (ALT/SGP 26 U/L (12-78); Albumin, Blood 3.3 g/dL (3.4-5.0); Albumin/Globulin Ratio 0.9 (0.8-1.8); Alk Phos 54 U/L (50-136); Anion Gap 8 mmol/L (6-16); Aspartate Aminotrans (AST/SGOT 21 U/L (12-37); Bilirubin, Total 0.9 mg/dL (0.1-1.0); Blood Urea Nitrogen 15 mg/dL (8-24); Bun/Creatinine Ratio 16.8 (12.0-20.0); CO2, Blood 24 mmol/L (21-32); Calcium, Blood 8.6 mg/dL (8.5-10.1); Chloride, Blood 106 mmol/L (98-108); Creatinine, Blood 0.89 mg/dL (0.40-1.00); Globulin, Blood 3.5 g/dL (2.2-4.0); Glomerular Filtration Rate >60 (60-); Glucose, Blood 91 mg/dL (70-99); Potassium, Blood 3.8 mmol/L (3.5-5.5); Sodium, Blood 138 mmol/L (136-145); Total Protein, Blood 6.8 g/dL (6.4-8.2)
--- NOTE | 2021-08-30 17:47 | NUR ---
SHIFT SUMMARY PT A/O X4 AND COOPERATIVE OF CARE. PT WAS SR RANGING FROM 65-80 T/O SHIFT. NO REPORTS OF CHEST PAIN/PRESSURE T/O SHIFT. NO REPORT OF SOB T/O SHIFT. PT O2 SATS >97% T/O SHIFT. PT HAS BEEN SLIGHTLY ANXIOUS AT TIMES ABOUT CURRENT MEDICATIONS THE PT IS RECEIVING. PT TOLERATING DIET WITH NO REPORT OF NAUSEA.
[2021-08-31 03:50] LABS: BASOPHILS ABSOLUTE AUTO 0.04 K/mm3 (0.00-0.23); BASOPHILS PERCENT AUTO 1 % (0-2); EOSINOPHILS ABSOLUTE AUTO 0.12 K/mm3 (0.00-0.68); EOSINOPHILS PERCENT AUTO 1 % (0-6); Hematocrit 40.2 % (33.0-51.0); Hemoglobin 12.4 g/dL (11.5-16.0); IMMATURE GRAN ABSOLUTE AUTO 0.04 K/mm3 (0.00-0.10); IMMATURE GRAN PERCENT AUTO 1 % (0-1); LYMPHOCYTES ABSOLUTE AUTO 2.15 K/mm3 (0.84-5.20); LYMPHOCYTES PERCENT AUTO 26 % (21-46); MONOCYTES PERCENT AUTO 8 % (4-13); Mean Corpuscular HGB 22.9 pg (26.0-34.0); Mean Corpuscular HGB Conc 30.8 g/dL (31.5-36.5); Mean Corpuscular Volume 74 fL (80-100); Mean Platelet Volume 9.4 fL (9.1-12.4); NEUTROPHILS ABSOLUTE AUTO 5.28 K/mm3 (1.96-9.15); NEUTROPHILS PERCENT AUTO 63 % (41-73); Platelet Count 242 K/mm3 (150-400); RDW Coefficient Variation 16.9 % (11.7-14.2); RDW Standard Deviation 42.5 fL (35.1-46.3); Red Blood Cell Count 5.42 M/mm3 (3.80-5.20); White Blood Cell Count 8.33 K/mm3 (4.00-11.30)
[2021-08-31 04:14] LABS: Alanine Aminotransfer (ALT/SGP 28 U/L (12-78); Albumin, Blood 3.3 g/dL (3.4-5.0); Albumin/Globulin Ratio 0.9 (0.8-1.8); Alk Phos 51 U/L (50-136); Anion Gap 7 mmol/L (6-16); Aspartate Aminotrans (AST/SGOT 20 U/L (12-37); Bilirubin, Total 0.7 mg/dL (0.1-1.0); Blood Urea Nitrogen 17 mg/dL (8-24); Bun/Creatinine Ratio 18.1 (12.0-20.0); CO2, Blood 23 mmol/L (21-32); Calcium, Blood 8.7 mg/dL (8.5-10.1); Chloride, Blood 108 mmol/L (98-108); Creatinine, Blood 0.94 mg/dL (0.40-1.00); Globulin, Blood 3.5 g/dL (2.2-4.0); Glomerular Filtration Rate >60 (60-); Glucose, Blood 95 mg/dL (70-99); Potassium, Blood 3.9 mmol/L (3.5-5.5); Sodium, Blood 138 mmol/L (136-145); Total Protein, Blood 6.8 g/dL (6.4-8.2)
--- NOTE | 2021-08-31 06:11 | NUR ---
SHIFT SUMMARY NO ACUTE CHANGES THIS SHIFT. PT A&OX4. SP02>92% ON RA. TELEMTRY READS NSR, HR 60'S. PT DENIES PAIN. PT UP TO BATHROOM INDEPENDENTLY. PT SLEPT MOST OF NIGHT. EKG DONE THIS AM PER ORDERS. REPOSITIONED SELF IN BED. CALL LIGHT IN REACH. WILL GIVE REPORT TO ONCOMING NURSE.
[2021-08-31] MEDS ORDERED: IRBE75 PO (14:21)
[2021-08-31] MEDS ORDERED: LANOXIN125 MCG PO (14:21)
[2021-08-31] MEDS ORDERED: AMIODARONE HCL400 M2 PO (14:21)
[2021-08-31] MEDS ORDERED: METO50ER PO (14:22)
[2021-08-31] MEDS ORDERED: METR500 PO (14:43)
--- NOTE | 2021-08-31 15:10 | NUR ---
DISCHARGE: PT ALERT AND ORIENTED X4. ON ROOM AIR. NEURO WNL. TELE SHOWING SINUS WITH HR 60-70'S. DENIES CHEST PAIN/PRESSURE. BP STABLE. ABLE TO TAKE MEDS WHOLE WITH WATER. PPP. BOWEL TONES PRESENT. INDPEND TO BATHROOM. DENIES ABDOMINAL PAIN/NAUSEA. RIGHT RADIAL SITE WNL. NO SIGNS OF HEMATOMA OR BRUISING. DENIES PAIN. SITE EDUCATION PROVIDED. PATIENT TOLERATING DIET WELL. CALL LIGHT REMAINED IN REACH AND BED IN LOW LOCKED POSITION. DISCHARGE INSTRUCTIONS REVIEWED AND QUESTIONS ANSWERED. PATIENT FATHER IN TO NUMERICAL CONTROL MACHINE TOOL OPERATOR PATIENT. LEFT UNIT VIA WHEELCHAIR WITH ALL PERSONAL BELONGINGS. IV TAKEN OUT WNL.
== END 2021-08-31 15:05 | disposition home or self-care (01) | DRG 286 ==
LOC: ER 16:06 → PCU 16:07 → ER 20:01 → PCU 20:01
PROVIDERS: Family Medicine; Physician Assistant; Student in an Organized Health Care Education/Training Program; ADMIT Internal Medicine
PROC: B2111ZZ Fluoroscopy of Multiple Coronary Arteries using Low Osmolar Contrast (ICD-10-PCS; principal; 2021-08-28)
DX: I48.91 Unspecified atrial fibrillation (principal); I50.21 Acute systolic (congestive) heart failure; I47.2 Ventricular tachycardia; E66.01 Morbid (severe) obesity due to excess calories; N76.0 Acute vaginitis; Z88.6 Allergy status to analgesic agent; Z88.8 Allergy status to other drugs, medicaments and biological substances; Z98.890 Other specified postprocedural states; F41.9 Anxiety disorder, unspecified; F32.9 Major depressive disorder, single episode, unspecified; Z79.899 Other long term (current) drug therapy; Z88.5 Allergy status to narcotic agent; Z20.822 Contact with and (suspected) exposure to COVID-19
CPT/HCPCS: 36415; 71275; 76937; 80053; 81001; 81025; 82550; 83735; 83880; 84439; 84443; 84484; 85025; 85610; 85730; 87086; 90686; 93005; 93010; 93308; 93321; 93454; 96365; 96366; 96367; 96372; 96375; 96376; 99152; 99153; 99285-25; A9270; C1769; C1887; C1894; C8929; G0008; G0378; J0282; J1160; J1644; J1940; J2250; J2270; J2405; J3010; J3475; J7030; J7060; Q9957; Q9967; U0004

== ENCOUNTER 2021-10-16 09:46 | Emergency (ER) | payer OTHER ==
[~2021-10-16] VITALS: Ht 162.6 cm; Wt 120.2 kg
[~2021-10-16 09:46] MED LIST changes: +AMIODARONE HCL400 M2 PO; +BUSP5 PO; +DILTIAZEM 24HR120 M4 PO; +FUROSEMIDE20 MG PO; +IRBE75 PO; +KLOR-CON 1010 ME3 PO; +LANOXIN125 MCG PO; +LANOXIN250 MCG PO; +METO50ER PO; +METR500 PO; +SERT100 PO; +Tambocor100 MG PO; +XARELTO20 M1 PO
[2021-10-16 10:43] LABS: BASOPHILS ABSOLUTE AUTO 0.07 K/mm3 (0.00-0.23); BASOPHILS PERCENT AUTO 1 % (0-2); EOSINOPHILS ABSOLUTE AUTO 0.04 K/mm3 (0.00-0.68); EOSINOPHILS PERCENT AUTO 1 % (0-6); Hematocrit 40.8 % (33.0-51.0); Hemoglobin 12.4 g/dL (11.5-16.0); IMMATURE GRAN PERCENT AUTO 2 % (0-1); LYMPHOCYTES ABSOLUTE AUTO 1.66 K/mm3 (0.84-5.20); LYMPHOCYTES PERCENT AUTO 25 % (21-46); MONOCYTES ABSOLUTE AUTO 0.51 K/mm3 (0.16-1.47); MONOCYTES PERCENT AUTO 8 % (4-13); Mean Corpuscular HGB 23.4 pg (26.0-34.0); Mean Corpuscular HGB Conc 30.4 g/dL (31.5-36.5); Mean Corpuscular Volume 77 fL (80-100); Mean Platelet Volume 9.8 fL (9.1-12.4); NEUTROPHILS ABSOLUTE AUTO 4.27 K/mm3 (1.96-9.15); NEUTROPHILS PERCENT AUTO 64 % (41-73); Platelet Count 210 K/mm3 (150-400); RDW Coefficient Variation 19.9 % (11.7-14.2); RDW Standard Deviation 54.4 fL (35.1-46.3); White Blood Cell Count 6.65 K/mm3 (4.00-11.30)
[2021-10-16 11:10] LABS: Alanine Aminotransfer (ALT/SGP 55 U/L (12-78); Albumin, Blood 3.7 g/dL (3.4-5.0); Albumin/Globulin Ratio 1.1 (0.8-1.8); Alk Phos 60 U/L (50-136); Anion Gap 8 mmol/L (6-16); Aspartate Aminotrans (AST/SGOT 27 U/L (12-37); Bilirubin, Total 0.6 mg/dL (0.1-1.0); Blood Urea Nitrogen 14 mg/dL (8-24); Bun/Creatinine Ratio 17.7 (12.0-20.0); CO2, Blood 25 mmol/L (21-32); Calcium, Blood 9.4 mg/dL (8.5-10.1); Chloride, Blood 107 mmol/L (98-108); Creatinine, Blood 0.79 mg/dL (0.40-1.00); Globulin, Blood 3.4 g/dL (2.2-4.0); Glomerular Filtration Rate >60 (60-); Glucose, Blood 92 mg/dL (70-99); Potassium, Blood 4.3 mmol/L (3.5-5.5); Sodium, Blood 140 mmol/L (136-145); Total Protein, Blood 7.1 g/dL (6.4-8.2); Troponin I <0.015 ng/mL (0.000-0.040)
== END 2021-10-16 12:21 | disposition home or self-care (01) ==
LOC: ER 09:46
PROVIDERS: Emergency Medicine
DX: R07.9 Chest pain, unspecified (principal); I48.91 Unspecified atrial fibrillation; J45.909 Unspecified asthma, uncomplicated; Z79.899 Other long term (current) drug therapy; Z79.01 Long term (current) use of anticoagulants
CPT/HCPCS: 36415; 71046; 80053; 83690; 84484; 85025; 93005; 93010; 99284-25

== ENCOUNTER → 2021-10-21 | Outpatient (CLI) | payer OTHER ==
[2021-10-21 11:11] LABS: BASOPHILS ABSOLUTE AUTO 0.05 K/mm3 (0.00-0.23); BASOPHILS PERCENT AUTO 1 % (0-2); EOSINOPHILS ABSOLUTE AUTO 0.04 K/mm3 (0.00-0.68); EOSINOPHILS PERCENT AUTO 1 % (0-6); Hematocrit 37.9 % (33.0-51.0); Hemoglobin 12.3 g/dL (11.5-16.0); IMMATURE GRAN ABSOLUTE AUTO 0.15 K/mm3 (0.00-0.10); IMMATURE GRAN PERCENT AUTO 2 % (0-1); LYMPHOCYTES ABSOLUTE AUTO 1.45 K/mm3 (0.84-5.20); LYMPHOCYTES PERCENT AUTO 17 % (21-46); MONOCYTES ABSOLUTE AUTO 0.67 K/mm3 (0.16-1.47); MONOCYTES PERCENT AUTO 8 % (4-13); Mean Corpuscular HGB Conc 32.5 g/dL (31.5-36.5); Mean Corpuscular Volume 74 fL (80-100); Mean Platelet Volume 9.8 fL (9.1-12.4); NEUTROPHILS ABSOLUTE AUTO 6.02 K/mm3 (1.96-9.15); NEUTROPHILS PERCENT AUTO 72 % (41-73); Platelet Count 282 K/mm3 (150-400); RDW Coefficient Variation 20.4 % (11.7-14.2); RDW Standard Deviation 52.2 fL (35.1-46.3); Red Blood Cell Count 5.13 M/mm3 (3.80-5.20); White Blood Cell Count 8.38 K/mm3 (4.00-11.30)
[2021-10-21 11:33] LABS: Alanine Aminotransfer (ALT/SGP 62 U/L (12-78); Albumin, Blood 3.9 g/dL (3.4-5.0); Albumin/Globulin Ratio 1.1 (0.8-1.8); Alk Phos 68 U/L (40-126); Anion Gap 8 mmol/L (6-16); Aspartate Aminotrans (AST/SGOT 26 U/L (12-37); Bilirubin, Total 0.5 mg/dL (0.1-1.0); Blood Urea Nitrogen 15 mg/dL (8-24); Bun/Creatinine Ratio 17.4 (12.0-20.0); CO2, Blood 27 mmol/L (21-32); Calcium, Blood 9.4 mg/dL (8.5-10.1); Chloride, Blood 100 mmol/L (98-108); Creatinine, Blood 0.86 mg/dL (0.40-1.00); Globulin, Blood 3.5 g/dL (2.2-4.0); Glomerular Filtration Rate >60 (60-); Glucose, Blood 101 mg/dL (70-99); Potassium, Blood 4.7 mmol/L (3.5-5.5); Sodium, Blood 135 mmol/L (136-145); Total Protein, Blood 7.4 g/dL (6.4-8.2)
== END | disposition home or self-care (01) ==
LOC: LAB SHORT 11:07 → LAB 11:07
PROVIDERS: Family Medicine
DX: R10.11 Right upper quadrant pain (principal)
CPT/HCPCS: 80053; 85025

== ENCOUNTER → 2021-12-22 | Outpatient (CLI) | payer OTHER ==
[2021-12-22 11:42] LABS: BASOPHILS ABSOLUTE AUTO 0.06 K/mm3 (0.00-0.23); BASOPHILS PERCENT AUTO 1 % (0-2); EOSINOPHILS ABSOLUTE AUTO 0.11 K/mm3 (0.00-0.68); EOSINOPHILS PERCENT AUTO 1 % (0-6); Hematocrit 43.8 % (33.0-51.0); Hemoglobin 13.8 g/dL (11.5-16.0); IMMATURE GRAN ABSOLUTE AUTO 0.07 K/mm3 (0.00-0.10); IMMATURE GRAN PERCENT AUTO 1 % (0-1); LYMPHOCYTES ABSOLUTE AUTO 2.41 K/mm3 (0.84-5.20); LYMPHOCYTES PERCENT AUTO 25 % (21-46); MONOCYTES ABSOLUTE AUTO 0.67 K/mm3 (0.16-1.47); MONOCYTES PERCENT AUTO 7 % (4-13); Mean Corpuscular HGB 24.2 pg (26.0-34.0); Mean Corpuscular HGB Conc 31.5 g/dL (31.5-36.5); Mean Corpuscular Volume 77 fL (80-100); Mean Platelet Volume 9.3 fL (9.1-12.4); NEUTROPHILS ABSOLUTE AUTO 6.33 K/mm3 (1.96-9.15); NEUTROPHILS PERCENT AUTO 66 % (41-73); Platelet Count 272 K/mm3 (150-400); RDW Coefficient Variation 15.1 % (11.7-14.2); RDW Standard Deviation 41.1 fL (35.1-46.3); White Blood Cell Count 9.65 K/mm3 (4.00-11.30)
[2021-12-22 12:05] LABS: Alanine Aminotransfer (ALT/SGP 35 U/L (12-78); Albumin, Blood 3.9 g/dL (3.4-5.0); Albumin/Globulin Ratio 1.1 (0.8-1.8); Alk Phos 61 U/L (40-126); Anion Gap 10 mmol/L (6-16); Aspartate Aminotrans (AST/SGOT 16 U/L (12-37); Bilirubin, Total 0.4 mg/dL (0.1-1.0); Blood Urea Nitrogen 17 mg/dL (8-24); Bun/Creatinine Ratio 19.1 (12.0-20.0); CO2, Blood 27 mmol/L (21-32); Calcium, Blood 8.9 mg/dL (8.5-10.1); Chloride, Blood 102 mmol/L (98-108); Creatinine, Blood 0.89 mg/dL (0.40-1.00); Globulin, Blood 3.5 g/dL (2.2-4.0); Glomerular Filtration Rate >60 (60-); Glucose, Blood 88 mg/dL (70-99); Potassium, Blood 4.6 mmol/L (3.5-5.5); Sodium, Blood 139 mmol/L (136-145); Thyroid Stimulating Hormone 1.367 uIU/mL (0.360-4.800); Total Protein, Blood 7.4 g/dL (6.4-8.2)
== END | disposition home or self-care (01) ==
LOC: LAB SHORT 11:35 → LAB 11:35
PROVIDERS: Physician Assistant
DX: R53.83 Other fatigue (principal)
CPT/HCPCS: 80053; 84443; 85025

== ENCOUNTER → 2023-01-10 | Outpatient (CLI) | payer BC, OTHER ==
[2023-01-10 13:06] LABS: BASOPHILS ABSOLUTE AUTO 0.05 K/mm3 (0.00-0.23); BASOPHILS PERCENT AUTO 1 % (0-2); EOSINOPHILS ABSOLUTE AUTO 0.14 K/mm3 (0.00-0.68); EOSINOPHILS PERCENT AUTO 2 % (0-6); Hemoglobin 13.6 g/dL (11.5-16.0); IMMATURE GRAN ABSOLUTE AUTO 0.08 K/mm3 (0.00-0.10); IMMATURE GRAN PERCENT AUTO 1 % (0-1); LYMPHOCYTES ABSOLUTE AUTO 2.19 K/mm3 (0.84-5.20); LYMPHOCYTES PERCENT AUTO 29 % (21-46); MONOCYTES ABSOLUTE AUTO 0.67 K/mm3 (0.16-1.47); MONOCYTES PERCENT AUTO 9 % (4-13); Mean Corpuscular HGB 24.3 pg (26.0-34.0); Mean Corpuscular HGB Conc 32.4 g/dL (31.5-36.5); Mean Corpuscular Volume 75 fL (80-100); Mean Platelet Volume 9.9 fL (9.1-12.4); NEUTROPHILS ABSOLUTE AUTO 4.55 K/mm3 (1.96-9.15); NEUTROPHILS PERCENT AUTO 59 % (41-73); Platelet Count 229 K/mm3 (150-400); RDW Coefficient Variation 15.6 % (11.7-14.2); RDW Standard Deviation 40.5 fL (35.1-46.3); White Blood Cell Count 7.68 K/mm3 (4.00-11.30)
[2023-01-10 13:25] LABS: Albumin, Blood 3.6 g/dL (3.4-5.0); Albumin/Globulin Ratio 0.9 (0.8-1.8); Bilirubin, Total 0.4 mg/dL (0.1-1.0); Bun/Creatinine Ratio 21.3 (12.0-20.0); Calcium, Blood 9.2 mg/dL (8.5-10.1); Creatinine, Blood 0.8 mg/dL (0.40-1.00); Globulin, Blood 3.8 g/dL (2.2-4.0); Thyroid Stimulating Hormone 0.943 uIU/mL (0.360-4.800); Total Protein, Blood 7.4 g/dL (6.4-8.2)
== END ==
LOC: LAB SHORT 13:01
PROVIDERS: Physician Assistant
DX: R53.83 Other fatigue (principal)
CPT/HCPCS: 80053; 84443; 85025

== ENCOUNTER → 2023-01-26 | Outpatient (CLI) | payer BC, OTHER | LOC: LAB 06:41 → LAB SHORT 06:41 | PROVIDERS: Physician Assistant Medical | DX: R19.5 Other fecal abnormalities (principal) | CPT/HCPCS: 82653; 83993 ==

== ENCOUNTER 2023-12-23 06:37 | Day surgery (SDC) | payer BC ==
[~2023-12-23] VITALS: Ht 162.6 cm; Wt 136.3 kg
[~2023-12-23 06:37] MED LIST changes: +DOCU100 PO; +ESCI20 PO; +FAMO20 PO; +FERSU300 PO; +IRON PO; +LANS15EC PO; +Lactated Ringer's 1,000 ML IV SCH; +ZYRTEC10 M2 PO
[2023-12-23 07:40] VITALS: BP 166/88
--- NOTE | 2023-12-23 07:59 | NUR ---
Ambulatory in Day Surgery WITH STEADY GAIT, ABLE TO USE RESTROOM INDEPENDENTLY. History, Chart, Medications and Allergies reviewed before start of procedure. Lungs clear T/O to Auscultation. Patient confirms NPO status and agrees with scheduled surgery. Pre-Op teaching done. Pt verbalizes understanding. Patient States Post-Procedure ride home has been arranged WITH SPOUSE BARBARASPER.
[2023-12-23] MEDS ORDERED: propofoL 20 ML IV ONE (08:09)
[2023-12-23] MEDS ORDERED: Midazolam HCl 1MG / ML 2ML Vial ONE (08:10)
[2023-12-23] MEDS ORDERED: FentaNYL Citrate 50 MCG/ML 2 ML Injection ONE (08:10)
--- NOTE | 2023-12-23 08:17 | NUR ---
12/23/23 0817 Chika Cazares HISTORY, CHART, MEDICATIONS AND ALLERGIES REVIEWED BEFORE START OF PROCEDURE. PATIENT CONFIRMS NPO STATUS AND AGREES WITH SCHEDULED PROCEDURE. 3-LEAD EKG REVIEWED WITH PHYSICIAN PRIOR TO START OF PROCEDURE. MONITOR INTACT WITH CONTINUOUS PULSE OXIMETRY,CAPNOGRAPHY, 3-LEAD EKG, INTERMITTENT BP. SUPPLEMENTAL O2 TO BE TITRATED THROUGHOUT PROCEDURE TO MAINTAIN O2 SATURATION ABOVE 90%. MAC DONE SEE ANESTHESIA RECORDS
[2023-12-23 08:52] VITALS: BP 153/89
--- NOTE | 2023-12-23 08:53 | NUR ---
DR GAMBINO AND DR BARRIOS AT BEDSIDE. PLAN TO TRANSFER PATIENT TO ED POST EGD PER DR TIMMONS FOR CARDIAC CONCERNS.
--- NOTE | 2023-12-23 09:14 | NUR ---
0859- TRANSFERED TO ED ROOM 8 VIA GURNEY AND TRANSFER MONITOR WITH CONTINUOUS 3-LEAD EKG AND PULSE OX, WITH INTERMITTENT BP. REPORT GIVEN TO WANDA LANCASTER RN. DR GAMBINO ACCOMPANIED PATIENT TO ED AND GAVE REPORT TO ED PROVIDER.
[2023-12-24] MEDS ORDERED: ELIQUIS5 M2 PO (13:54)
[2023-12-24] MEDS ORDERED: ABILIFY MYCITE2 M2 PO (13:54)
== END 2023-12-23 22:55 | disposition home or self-care (01) ==
LOC: ORSCMMR 06:37 → ORD 08:15 → ORSCMMR 08:15 → ORD 03-16 08:00
PROVIDERS: Internal Medicine Gastroenterology
PROC: 0DB98ZX Excision of Duodenum, Via Natural or Artificial Opening Endoscopic, Diagnostic (ICD-10-PCS; principal; 2023-12-23 08:15)
PROC: 0DB68ZX Excision of Stomach, Via Natural or Artificial Opening Endoscopic, Diagnostic (ICD-10-PCS; principal; 2023-12-23 08:15)
DX: R10.13 Epigastric pain (principal); K21.9 Gastro-esophageal reflux disease without esophagitis; R11.0 Nausea; I48.91 Unspecified atrial fibrillation; I50.9 Heart failure, unspecified; R19.4 Change in bowel habit; Z80.0 Family history of malignant neoplasm of digestive organs; G47.33 Obstructive sleep apnea (adult) (pediatric); I10 Essential (primary) hypertension; E66.9 Obesity, unspecified; Z68.43 Body mass index [BMI] 50.0-59.9, adult; Z79.899 Other long term (current) drug therapy; F17.210 Nicotine dependence, cigarettes, uncomplicated
CPT/HCPCS: 88305; 88342; J2250; J2704; J3010; J7120

== ENCOUNTER 2023-12-23 09:06 | Observation (INO) | payer BC ==
[~2023-12-23] VITALS: Ht 162.6 cm; Wt 134.3 kg
[~2023-12-23 09:06] MED LIST changes: -Lactated Ringer's 1,000 ML IV SCH
[2023-12-23] MEDS ORDERED: Metoprolol Tartrate 1 MG/ML 5 ML VIAL IV PRN (10:00)
[2023-12-23] MEDS ORDERED: NS 1,000 ML IV SCH (10:00)
[2023-12-23 10:30] LABS: BASOPHILS ABSOLUTE AUTO 0.03 K/mm3 (0.00-0.23); BASOPHILS PERCENT AUTO 0 % (0-2); EOSINOPHILS ABSOLUTE AUTO 0.08 K/mm3 (0.00-0.68); EOSINOPHILS PERCENT AUTO 1 % (0-6); Hematocrit 42.8 % (33.0-51.0); Hemoglobin 14.4 g/dL (11.5-16.0); IMMATURE GRAN ABSOLUTE AUTO 0.06 K/mm3 (0.00-0.10); IMMATURE GRAN PERCENT AUTO 1 % (0-1); LYMPHOCYTES ABSOLUTE AUTO 1.91 K/mm3 (0.84-5.20); LYMPHOCYTES PERCENT AUTO 26 % (21-46); MONOCYTES ABSOLUTE AUTO 0.39 K/mm3 (0.16-1.47); MONOCYTES PERCENT AUTO 5 % (4-13); Mean Corpuscular HGB 27.2 pg (26.0-34.0); Mean Corpuscular HGB Conc 33.6 g/dL (31.5-36.5); Mean Corpuscular Volume 81 fL (80-100); Mean Platelet Volume 9.4 fL (9.1-12.4); NEUTROPHILS PERCENT AUTO 67 % (41-73); Platelet Count 242 K/mm3 (150-400); RDW Coefficient Variation 14.6 % (11.7-14.2); RDW Standard Deviation 41.5 fL (35.1-46.3); Red Blood Cell Count 5.29 M/mm3 (3.80-5.20); White Blood Cell Count 7.37 K/mm3 (4.00-11.30)
[2023-12-23 10:59] LABS: Bun/Creatinine Ratio 17.9 (12.0-20.0); Calcium, Blood 8.6 mg/dL (8.5-10.1); Creatinine, Blood 0.73 mg/dL (0.40-1.00); Magnesium, Blood 2.2 mg/dL (1.6-2.4); Potassium, Blood 4.1 mmol/L (3.5-5.5)
[2023-12-23] MEDS ORDERED: FLU VACC QS2023-24(6MOS UP)/PF 60 MCG/0.5 ML SYRINGE IM SCH (15:50)
[2023-12-23] MEDS ORDERED: Ondansetron 4 MG SoluTab MM PRN (16:05)
[2023-12-23] MEDS ORDERED: Pantoprazole Sodium 40 MG Tab PO SCH (16:30)
--- NOTE | 2023-12-23 16:36 | NUR ---
REPORT RECIEVED FROM ER NURSE AT 8761.
[2023-12-23 17:01] VITALS: BP 114/93
--- NOTE | 2023-12-23 17:19 | NUR ---
TRANSFER UPDATE PT ARRIVED TO PCU AT 1650 VIA GURNEY AND ON RA. AMIO GTT RUNNING PER ORDERS. PT AMBULATED TO BATHROOM AT TIME OF ARRIVALM, TOLERATED WELL. PT A/OX4. PT AFIB IN THE 90-110'S, ASYMPTOMATIC AT THIS TIME. PT REPORTS NO PALPITATIONS AT THIS TIME. OTHER VSS AT THIS TIME. PT ABLE TO PROVIDE HEALTH HISTORY. PT ORIENTED TO ROOM AND CALL LIGHT. FAMILY AT BEDSIDE.
[2023-12-23] MEDS ORDERED: Apixaban 5 MG Tab ONE (18:31)
[2023-12-23 20:09] VITALS: BP 129/93
[2023-12-23] MEDS ORDERED: Metoprolol Succinate 50 MG TABCR PO SCH (21:00)
[2023-12-23] MEDS ORDERED: Apixaban 5 MG Tab PO SCH (21:00)
[2023-12-23 23:20] VITALS: BP 126/82
[2023-12-24 02:07] LABS: Magnesium, Blood 2.3 mg/dL (1.6-2.4)
[2023-12-24 02:08] LABS: Albumin, Blood 3.3 g/dL (3.4-5.0); Anion Gap 4 mmol/L (6-16); Blood Urea Nitrogen 17 mg/dL (8-24); CO2, Blood 25 mmol/L (21-32); Calcium, Blood 8.5 mg/dL (8.5-10.1); Chloride, Blood 109 mmol/L (98-108); Glomerular Filtration Rate 86 (60-); Glucose, Blood 104 mg/dL (70-99); Phosphorus, Blood 3.5 mg/dL (2.5-4.9); Potassium, Blood 3.8 mmol/L (3.5-5.5); Sodium, Blood 138 mmol/L (136-145)
[2023-12-24 02:09] LABS: BASOPHILS ABSOLUTE AUTO 0.04 K/mm3 (0.00-0.23); BASOPHILS PERCENT AUTO 1 % (0-2); EOSINOPHILS ABSOLUTE AUTO 0.08 K/mm3 (0.00-0.68); EOSINOPHILS PERCENT AUTO 1 % (0-6); Hematocrit 42.5 % (33.0-51.0); Hemoglobin 14.5 g/dL (11.5-16.0); IMMATURE GRAN ABSOLUTE AUTO 0.07 K/mm3 (0.00-0.10); IMMATURE GRAN PERCENT AUTO 1 % (0-1); LYMPHOCYTES PERCENT AUTO 30 % (21-46); MONOCYTES ABSOLUTE AUTO 0.55 K/mm3 (0.16-1.47); MONOCYTES PERCENT AUTO 7 % (4-13); Mean Corpuscular HGB 27.4 pg (26.0-34.0); Mean Corpuscular HGB Conc 34.1 g/dL (31.5-36.5); Mean Corpuscular Volume 80 fL (80-100); Mean Platelet Volume 9.8 fL (9.1-12.4); NEUTROPHILS PERCENT AUTO 61 % (41-73); Platelet Count 225 K/mm3 (150-400); RDW Coefficient Variation 14.7 % (11.7-14.2); RDW Standard Deviation 42.5 fL (35.1-46.3); Red Blood Cell Count 5.29 M/mm3 (3.80-5.20); White Blood Cell Count 8.14 K/mm3 (4.00-11.30)
[2023-12-24] MEDS ORDERED: Potassium Chloride 10 Meq Tablet SA PO ONE (02:20)
--- NOTE | 2023-12-24 02:22 | NUR ---
CARDIAC EVENT PT HAD 12 BEAT RUN OF VTACH AT 2320. PT REPORTED SOME SOB BUT OTHER POLANCO NONSYMPTOMATIC. HOSPITALIST NOTIFIED AND REVIEWED CHART. SAID TO CHECK LABS IN AM AND MONITOR. AT 0130 PT HAD ANOTHER 11 BEAT RUN OF VTACH WHILE GOING TO THE BATHROOM AND FELT VERY SOB AND REPORTS SHARP PAIN UNDER HER LEFT BREAST IN HER CHEST WITH DEEP BREATHS. LABS DRAWN EARLY. HOSPITALIST NOTIFED AND SAID TO ADD TROPONIN AND SUGGESTED ASKING DAYSHIFT DOCTOR IF PT NEEDS REPEAT ECHO. PT CURRENTLY RESTING IN BED AND REPORTS CP AND SOB GETTING BETTER WITH REST.
[2023-12-24 04:05] VITALS: BP 139/89
--- NOTE | 2023-12-24 05:07 | NUR ---
SHIFT SUMMARY ASSUMED CARE OF PT AT 1900. PT IS A/OX4. PT WAS IN AFIB T/O THE NOC. PT HAD FREQUENT RUNS OF VTACH RANGING FROM 5-12 BEATS. LUNG SOUNDS CLEAR. PT C/O SOB AND CP AFTER WALKING TO THE BATHROOM. TROPONINS NEGATIVE. PT FELT BETTER AFTER RESTING. PT DID NOT SLEEP AT ALL DURING THE NOC.
[2023-12-24 07:26] VITALS: BP 141/103
[2023-12-24] MEDS ORDERED: ARIPiprazole 2 MG Tablet PO SCH (09:00)
[2023-12-24] MEDS ORDERED: Citalopram Hydrobromide 20 MG Tab PO SCH (09:00)
[2023-12-24] MEDS ORDERED: Famotidine 20 MG Tab PO SCH (09:00)
[2023-12-24] MEDS ORDERED: Amiodarone HCl 200 MG Tab PO SCH (09:00)
[2023-12-24] MEDS ORDERED: Loratadine 10 MG Tab PO SCH (09:00)
--- NOTE | 2023-12-24 09:56 | NUR ---
UPDATE: PT CONVERTED TO SINUS RHYTHM @09. VSS. AWARE, ORDERS TO CONTINUE AMIO DRIP.
[2023-12-24 11:16] VITALS: BP 140/94
[2023-12-24] MEDS ORDERED: ELIQUIS5 M2 PO (13:54)
[2023-12-24] MEDS ORDERED: ABILIFY MYCITE2 M2 PO (13:54)
--- NOTE | 2023-12-24 14:39 | NUR ---
DISCHARGE: PT D/C PCU 5 @1440 VIA WHEELCHAIR. DISCHARGE INSTRUCTIONS AND EDUCATION PROVIDED TO PT AND SPOUSE. ALL BELONGINGS WITH PT.
== END 2023-12-24 14:49 | disposition home or self-care (01) ==
LOC: ER 09:06 → PCU 09:07
PROVIDERS: Student in an Organized Health Care Education/Training Program; ADMIT Family Medicine
DX: I48.0 Paroxysmal atrial fibrillation (principal); I48.92 Unspecified atrial flutter; I11.0 Hypertensive heart disease with heart failure; I50.20 Unspecified systolic (congestive) heart failure; I42.8 Other cardiomyopathies; F32.9 Major depressive disorder, single episode, unspecified; E66.2 Morbid (severe) obesity with alveolar hypoventilation; Z68.43 Body mass index [BMI] 50.0-59.9, adult; Z88.8 Allergy status to other drugs, medicaments and biological substances; Z87.891 Personal history of nicotine dependence
CPT/HCPCS: 36415; 80048; 80069; 83735; 84484; 85025; 93005; 93010; 96361; 96365; 96366; 96375; 99291-25; A9270; G0378; J0282; J7030

== ENCOUNTER → 2024-08-30 | Outpatient (CLI) | payer OTHER ==
[~2024-08-30] MED LIST changes: +ABILIFY MYCITE2 M2 PO
[2024-08-30 13:16] LABS: BASOPHILS ABSOLUTE AUTO 0.05 K/mm3 (0.00-0.23); BASOPHILS PERCENT AUTO 1 % (0-2); EOSINOPHILS ABSOLUTE AUTO 0.12 K/mm3 (0.00-0.68); EOSINOPHILS PERCENT AUTO 1 % (0-6); Hematocrit 41.1 % (33.0-51.0); Hemoglobin 13.1 g/dL (11.5-16.0); IMMATURE GRAN PERCENT AUTO 1 % (0-1); LYMPHOCYTES ABSOLUTE AUTO 2.42 K/mm3 (0.84-5.20); LYMPHOCYTES PERCENT AUTO 25 % (21-46); MONOCYTES ABSOLUTE AUTO 0.76 K/mm3 (0.16-1.47); MONOCYTES PERCENT AUTO 8 % (4-13); Mean Corpuscular HGB Conc 31.9 g/dL (31.5-36.5); Mean Corpuscular Volume 82 fL (80-100); NEUTROPHILS ABSOLUTE AUTO 6.09 K/mm3 (1.96-9.15); NEUTROPHILS PERCENT AUTO 64 % (41-73); Platelet Count 255 K/mm3 (150-400); RDW Coefficient Variation 14.6 % (11.7-14.2); RDW Standard Deviation 42.5 fL (35.1-46.3); Red Blood Cell Count 5.03 M/mm3 (3.80-5.20); White Blood Cell Count 9.54 K/mm3 (4.00-11.30)
[2024-08-30 13:38] LABS: Albumin, Blood 3.4 g/dL (3.4-5.0); Bilirubin, Total 0.5 mg/dL (0.1-1.0); Bun/Creatinine Ratio 16.3 (12.0-20.0); Calcium, Blood 8.8 mg/dL (8.5-10.1); Creatinine, Blood 0.98 mg/dL (0.40-1.00); Globulin, Blood 3.5 g/dL (2.2-4.0); Potassium, Blood 4.1 mmol/L (3.5-5.5); Thyroid Stimulating Hormone 0.506 uIU/mL (0.360-4.800); Total Protein, Blood 6.9 g/dL (6.4-8.2)
== END | disposition home or self-care (01) ==
LOC: LAB SHORT 13:12 → LAB 13:12
PROVIDERS: Physician Assistant Surgical
DX: R07.9 Chest pain, unspecified (principal)
CPT/HCPCS: 80053; 84443; 84484; 85025; 85379

== ENCOUNTER 2025-03-05 16:36 | Inpatient (IN) | payer OTHER ==
[~2025-03-05] VITALS: Ht 162.6 cm; Wt 136.1 kg
[2025-03-05] MEDS ORDERED: RIVAROXABAN2.5 MG PO (17:26)
[2025-03-05] MEDS ORDERED: NS 1,000 ML IV ONE (17:36)
[2025-03-05 17:50] LABS: BASOPHILS ABSOLUTE AUTO 0.04 K/mm3 (0.00-0.23); BASOPHILS PERCENT AUTO 0 % (0-2); EOSINOPHILS ABSOLUTE AUTO 0.07 K/mm3 (0.00-0.68); EOSINOPHILS PERCENT AUTO 1 % (0-6); Hematocrit 45.8 % (33.0-51.0); Hemoglobin 14.8 g/dL (11.5-16.0); IMMATURE GRAN ABSOLUTE AUTO 0.07 K/mm3 (0.00-0.10); IMMATURE GRAN PERCENT AUTO 1 % (0-1); LYMPHOCYTES ABSOLUTE AUTO 1.98 K/mm3 (0.84-5.20); LYMPHOCYTES PERCENT AUTO 21 % (21-46); MONOCYTES ABSOLUTE AUTO 0.59 K/mm3 (0.16-1.47); MONOCYTES PERCENT AUTO 6 % (4-13); Mean Corpuscular HGB 25.6 pg (26.0-34.0); Mean Corpuscular HGB Conc 32.3 g/dL (31.5-36.5); Mean Corpuscular Volume 79 fL (80-100); Mean Platelet Volume 10.1 fL (9.1-12.4); NEUTROPHILS ABSOLUTE AUTO 6.67 K/mm3 (1.96-9.15); NEUTROPHILS PERCENT AUTO 71 % (41-73); Platelet Count 256 K/mm3 (150-400); RDW Coefficient Variation 15.2 % (11.7-14.2); RDW Standard Deviation 42.9 fL (35.1-46.3); Red Blood Cell Count 5.79 M/mm3 (3.80-5.20); White Blood Cell Count 9.42 K/mm3 (4.00-11.30)
[2025-03-05] MEDS ORDERED: Metoprolol Tartrate 1 MG/ML 5 ML VIAL IV ONE (18:00)
[2025-03-05 18:07] LABS: Albumin, Blood 3.8 g/dL (3.4-5.0); Bilirubin, Total 0.7 mg/dL (0.1-1.0); Bun/Creatinine Ratio 15.7 (12.0-20.0); Calcium, Blood 9.4 mg/dL (8.5-10.1); Creatinine, Blood 0.96 mg/dL (0.40-1.00); Globulin, Blood 3.7 g/dL (2.2-4.0); Total Protein, Blood 7.5 g/dL (6.4-8.2)
[2025-03-05] MEDS ORDERED: Amiodarone HCl 50 MG / ML 3 ML Amp IV ONE (19:45)
[2025-03-05 20:00] LABS: Magnesium, Blood 1.7 mg/dL (1.6-2.4); Phosphorus, Blood 3.4 mg/dL (2.5-4.9)
[2025-03-05] MEDS ORDERED: Rivaroxaban 10 MG Tab PO SCH (20:00)
[2025-03-05] MEDS ORDERED: NS 1,000 ML IV SCH ×2 (20:00→20:35)
[2025-03-05 22:21] VITALS: BP 106/77
[2025-03-05 22:54] VITALS: BP 95/71
--- NOTE | 2025-03-05 23:32 | NUR ---
PT ARRIVAL PT ARRIVED VIA CART FROM ED AT 2201 ,PT TRANSFERRED SELF TO BED WITH STANDBY ASSIST.PT ON AMIODARONE DRIP INFUSING AT 33.3ML/HR,STARTED IN ED AT 2024.PT HAS PACER PADS ON.IN AFIB WITH IRREGULAR RATE OF 107-150'S.PT DENIES CHEST PAIN/PRESSURE.STATES THAT SHE HAS CHEST DISCOMFORT WHICH HAS IMPROVED SINCE SHE CAME TO THE HOSPITAL.DENIES NAUSEA,DENIES SOB.ROOM ORIENTATION COMPLETED.PT VERBALIZES UNDERSTANDING.CALL LIGHT AND PT'S ITEMS WITHIN REACH.WILL CONTINUE TO MONITOR.
[2025-03-05 23:34] VITALS: BP 102/65
[2025-03-05 23:45] VITALS: BP 99/54
[2025-03-06] VITALS (26 sets, daily range): BP systolic 89–142; BP diastolic 53–108
[2025-03-06 04:58] LABS: Bun/Creatinine Ratio 12.6 (12.0-20.0); Calcium, Blood 8.1 mg/dL (8.5-10.1); Creatinine, Blood 0.96 mg/dL (0.40-1.00); Magnesium, Blood 1.9 mg/dL (1.6-2.4); Potassium, Blood 3.9 mmol/L (3.5-5.5)
--- NOTE | 2025-03-06 06:51 | NUR ---
PT HAS BEEN AWAKE MOST OF THE NIGHT, ON MAINTANANCE AMIODARONE DRIP AT 16.7ML/HR.AFIB HR 96-160.HR 160BPM WITH ACTIVITY.PT REPORTS THAT THE CHEST DISCOMFORT HAS RESOLVED.DENIES CHEST PAIN,DENIES SOB.PT MAINTAINED OXYGEN SATURATION >93% ON RA.PT STATES THAT FAMILY WILL BRING HOME CPAP TODAY.PT ASKING FOR FOOD.PT INFORMED THAT WILL DISCUSS WITH PROVIDER THIS MORNING.CALL LIGHT AND PT'S ITEMS WITHIN REACH.DENIES NEEDS AT THIS TIME,WILL GIVE REPORT TO INCOMING NURSE FOR CONTINUITY OF CARE.
[2025-03-06] MEDS ORDERED: Omeprazole 20 MG CapCR PO SCH (16:30)
--- NOTE | 2025-03-06 18:14 | NUR ---
PT SUMMARY; PT WAS ORIGINALLY PLANNED FOR CARDIOVERISON SUPPOSEDLY AT 2PM TODAY, PT CONVERTED BACK TO SR AT 1156 SUSTAINED IN THE 70-80'S. PT REPORTED FEELING MUCH BETTER/RELIEF ON HER CHEST. SBP 120'S, SATS BAOVE 95% ON RA. PT HAS BEEN AMBULATING IN THE ROOM AND AROUND THE UNIT ASSISTED AND PT REMAINED ON SR. TO START PO AMIO IN THE MORNING. FAMILY AT THE BEDSIDE T/O SHIFT AWARE OF THE PLAN OF CARE. NO ACUTE CHANGED FOR THE SHIFT WILL REPORT TO ONCOMING SHIFT
[2025-03-06] MEDS ORDERED: Acetaminophen 325 MG TABLET PO PRN (18:30)
[2025-03-06] MEDS ORDERED: Metoprolol Succinate 50 MG TABCR PO SCH (21:00)
[2025-03-07 04:15] LABS: BASOPHILS ABSOLUTE AUTO 0.02 K/mm3 (0.00-0.23); BASOPHILS PERCENT AUTO 0 % (0-2); EOSINOPHILS ABSOLUTE AUTO 0.08 K/mm3 (0.00-0.68); EOSINOPHILS PERCENT AUTO 1 % (0-6); Hematocrit 40.1 % (33.0-51.0); Hemoglobin 12.6 g/dL (11.5-16.0); IMMATURE GRAN ABSOLUTE AUTO 0.05 K/mm3 (0.00-0.10); IMMATURE GRAN PERCENT AUTO 1 % (0-1); LYMPHOCYTES ABSOLUTE AUTO 1.89 K/mm3 (0.84-5.20); LYMPHOCYTES PERCENT AUTO 27 % (21-46); MONOCYTES ABSOLUTE AUTO 0.58 K/mm3 (0.16-1.47); MONOCYTES PERCENT AUTO 8 % (4-13); Mean Corpuscular HGB 25.1 pg (26.0-34.0); Mean Corpuscular HGB Conc 31.4 g/dL (31.5-36.5); Mean Corpuscular Volume 80 fL (80-100); NEUTROPHILS ABSOLUTE AUTO 4.35 K/mm3 (1.96-9.15); NEUTROPHILS PERCENT AUTO 63 % (41-73); Platelet Count 208 K/mm3 (150-400); RDW Coefficient Variation 15.3 % (11.7-14.2); Red Blood Cell Count 5.01 M/mm3 (3.80-5.20); White Blood Cell Count 6.97 K/mm3 (4.00-11.30)
[2025-03-07 04:39] LABS: Bun/Creatinine Ratio 18.2 (12.0-20.0); Calcium, Blood 8.5 mg/dL (8.5-10.1); Creatinine, Blood 0.93 mg/dL (0.40-1.00); Magnesium, Blood 2.1 mg/dL (1.6-2.4); Potassium, Blood 3.8 mmol/L (3.5-5.5)
[2025-03-07 04:48] VITALS: BP 121/85
--- NOTE | 2025-03-07 05:28 | NUR ---
A/OX4, VERBALIZES NEEDS, USES CALL LIGHT APPROPRIATELY. PTS IN ROOM WITH HER. PT DENIES PAIN. SINUS RHYTHM, HR 60 S-70 S, PULSES PALPABLE, DENIES CHEST PAIN/PRESSURE. PT REMAINS ON RA WHILE AWAKE SATS ABOVE 90%. BROUGHT IN HOME CPAP, RT CLEARED USE OF HOME CPAP, PT POLITELY DECLINED CONTINUOUS PULSE OXIMETER WHILE USING CPAP RECOMMENDED BY RT. TOLERATED CPAP WELL, ALL NIGHT WHILE SLEEPING. PT AMBULATES TO BATHROOM INDEPENDENTLY. SHE NOTED SOME SORENESS IN HER LEFT ARM DUE TO IV PLACEMENT. PT EDUCATED TO INFORM STAFF IF SITE BECOMES PAINFUL, RED, OR SWOLLEN.
[2025-03-07 07:48] VITALS: BP 113/69
[2025-03-07] MEDS ORDERED: Loratadine 10 MG Tab PO SCH (09:00)
[2025-03-07] MEDS ORDERED: ARIPiprazole 2 MG Tablet PO SCH (09:00)
[2025-03-07] MEDS ORDERED: Amiodarone HCl 200 MG Tab PO SCH (09:00)
[2025-03-07] MEDS ORDERED: XARELTO20 MG PO (11:53)
[2025-03-07] MEDS ORDERED: AMIODARONE HCL400 M2 PO (11:54)
[2025-03-07] MEDS ORDERED: Amiodarone HCl200 MG PO ×2 (11:55→11:56)
[2025-03-07 12:08] VITALS: BP 116/67
--- NOTE | 2025-03-07 12:18 | NUR ---
D/C NOTE: ALL D/C INSTRUCTIONS REVIEWED WITH THE PATIENT AND SPOUSE, THEY BOTH VERBALIZED UNDERSTANDING. VSS T/O SHIFT NO ACUTE CHANGES. PERSCRIPTIONS SENT TO MICHAEL. PT HAS BEEN IND IN ROOM.
== END 2025-03-07 12:31 | disposition home or self-care (01) | DRG 309 ==
LOC: ER 16:36 → ERHOLD 16:37 → PCU 16:37
PROVIDERS: Emergency Medicine; Family Medicine; Nurse Practitioner Acute Care; Student in an Organized Health Care Education/Training Program; ADMIT Internal Medicine
DX: I48.0 Paroxysmal atrial fibrillation (principal); Z68.43 Body mass index [BMI] 50.0-59.9, adult; G47.33 Obstructive sleep apnea (adult) (pediatric); E66.01 Morbid (severe) obesity due to excess calories; K21.9 Gastro-esophageal reflux disease without esophagitis; F32.A Depression, unspecified; F41.9 Anxiety disorder, unspecified; I95.9 Hypotension, unspecified; J30.1 Allergic rhinitis due to pollen; F17.290 Nicotine dependence, other tobacco product, uncomplicated; Z79.01 Long term (current) use of anticoagulants; Z79.899 Other long term (current) drug therapy; Z88.5 Allergy status to narcotic agent; Z88.6 Allergy status to analgesic agent; Z90.49 Acquired absence of other specified parts of digestive tract; Z88.8 Allergy status to other drugs, medicaments and biological substances
CPT/HCPCS: 36415; 71046; 80048; 80053; 83735; 83880; 84100; 84443; 84484; 84703; 85025; 93005; 93010; 93306; 94762; 96361; 96374; 96375; 99285-25; A9270; G0378; J0282; J7030; J7060

== ENCOUNTER → 2025-10-09 | Outpatient (CLI) | payer OTHER ==
[~2025-10-09] MED LIST changes: +Amiodarone HCl200 MG PO; +RIVAROXABAN2.5 MG PO; +XARELTO20 MG PO
[2025-10-09 13:34] LABS: BASOPHILS ABSOLUTE AUTO 0.04 K/mm3 (0.00-0.23); BASOPHILS PERCENT AUTO 1 % (0-2); EOSINOPHILS ABSOLUTE AUTO 0.09 K/mm3 (0.00-0.68); EOSINOPHILS PERCENT AUTO 1 % (0-6); Hematocrit 40.2 % (33.0-51.0); Hemoglobin 13.2 g/dL (11.5-16.0); IMMATURE GRAN ABSOLUTE AUTO 0.04 K/mm3 (0.00-0.10); IMMATURE GRAN PERCENT AUTO 1 % (0-1); LYMPHOCYTES ABSOLUTE AUTO 1.27 K/mm3 (0.84-5.20); LYMPHOCYTES PERCENT AUTO 20 % (21-46); MONOCYTES ABSOLUTE AUTO 0.50 K/mm3 (0.16-1.47); MONOCYTES PERCENT AUTO 8 % (4-13); Mean Corpuscular HGB Conc 32.8 g/dL (31.5-36.5); Mean Corpuscular Volume 79 fL (80-100); NEUTROPHILS ABSOLUTE AUTO 4.45 K/mm3 (1.96-9.15); NEUTROPHILS PERCENT AUTO 70 % (41-73); NRBC ABSOLUTE 0.00 K/mm3 (0.00-0.02); NRBC Auto 0.0 /100 WBC (0.0-0.2); Platelet Count 208 K/mm3 (150-400); RDW Coefficient Variation 14.3 % (11.7-14.2); RDW Standard Deviation 40.5 fL (35.1-46.3)
[2025-10-09 13:47] LABS: Alanine Aminotransfer (ALT/SGP 60.0 U/L (12-78); Albumin, Blood 3.6 g/dL (3.4-5.0); Albumin/Globulin Ratio 1.1 (0.8-1.8); Anion Gap 12.0 mmol/L (3-11); Aspartate Aminotrans (AST/SGOT 31.0 U/L (12-37); Bilirubin, Total 1.1 mg/dL (0.1-1.0); Blood Urea Nitrogen 14.0 mg/dL (8-24); CO2, Blood 28.0 mmol/L (21-32); Calcium, Blood 8.7 mg/dL (8.5-10.1); Chloride, Blood 101.0 mmol/L (98-108); Creatinine, Blood 1.07 mg/dL (0.40-1.00); Globulin, Blood 3.4 g/dL (2.2-4.0); Glucose, Blood 98.0 mg/dL (70-99); Magnesium, Blood 1.9 mg/dL (1.6-2.4); Potassium, Blood 3.9 mmol/L (3.5-5.5); Sodium, Blood 137.0 mmol/L (136-145); Total Protein, Blood 7.0 g/dL (6.4-8.2)
== END | disposition home or self-care (01) ==
LOC: LAB 13:31 → LAB SHORT 13:31
PROVIDERS: Chiropractor
DX: R10.13 Epigastric pain (principal); R07.9 Chest pain, unspecified
CPT/HCPCS: 80053; 83690; 83735; 84484; 85025